=== PATIENT | male | born 1930 | race Caucasian/White ===

== ENCOUNTER 2016-10-01 17:54 | Emergency (ER) | payer MEDICARE, OTHER ==
[2016-10-01 18:22] VITALS: BP 147/85
[2016-10-01] MEDS ORDERED: NS 0.9% 1000 ML* 1,000 ML IV ONE (19:27)
--- NOTE | 2016-10-02 00:24 | UC ---
Libby Swain Erika, scribed for Rafaela Avelar MD on 10/01/16 at 1926 . General HPI - HPI Summary HPI Summary: Patient is an 86-year-old male presenting to [facility] with a CC of cough. Patient and patient's son reports that he was diagnosed with pneumonia a few weeks ago, and was seen at the ED and placed on a Z pack. Pt reports he improved for a while, but symptoms have returned with a cough and difficulty breathing. Pt has also intermittently had an aching feeling in his lower abdominal, which worsened while at [facility]. Hx diverticulosis with ruptured diverticulum. PSHx hip replacement surgery. Pt denies chest pain. He reports his last BM was today. - History of Current Complaint Chief Complaint: UCGeneralIllness Stated Complaint: COUGH Time Seen by Provider: 10/01/16 18:41 Hx Obtained From: Patient, Family/Boom Tender - Son Onset/Duration: Gradual Onset, Lasting Weeks, Worse Since - today Timing: Constant Onset Severity: Mild Current Severity: Moderate Pain Intensity: 5 Associated Signs & Symptoms: Positive: Abdominal Pain, Cough, SOB Related Hx: Recent Illness - pneumonia - Allergy/Home Medications Allergies/Adverse Reactions: Allergies Allergy/AdvReac Type Severity Reaction Status Date / Time Sulfa Antibiotics Allergy Intermediate Hives Verified 06/20/16 11:16 Sertraline [From Zoloft] Allergy Mild Diarrhea Verified 06/20/16 11:16 Tramadol Allergy Unknown Verified 06/20/16 11:16 Reaction Details betablocker Allergy Unknown Unknown Uncoded 07/01/15 09:10 Reaction Details PMH/Surg Hx/FS Hx/Imm Hx Endocrine History Of: Reports: Diabetes, Dyslipidemia Cardiovascular History Of: Reports: Cardiac Disorders - DE X 2 WITH STENT PLACEMENT, Hypertension, Pacemaker/ICD, Myocardial Infarction, Congestive Heart Failure Respiratory History Of: Reports: Bronchitis - IN THE PAST Psychological History Of: Reports: Depression Other History Of: Anticoagulant Therapy - pt takes plavix - Surgical History Surgical History: Yes Surgery Procedure, Year, and Place: cardiac stent,angioplasty, RIGHT HIP REPLACEMENT, COLON RESECTION, HERNIA;pacer/defib January 2013 - Family History Known Family History: Positive: Hypertension Family History: Denies FHx anesthesia reaction - Social History Alcohol Use: Weekly Alcohol Amount: 2-3 SHOTS A WEEK Substance Use Type: None Smoking Status (MU): Current Every Day Smoker Type: Cigars Amount Used/How Often: one/day Length of Time of Smoking/Using Tobacco: 30 yrs Have You Smoked in the Last Year: Yes - Immunization History Most Recent Influenza Vaccination: 2016 Review of Systems Respiratory: Shortness Of Breath, Cough Cardiovascular: Negative Gastrointestinal: Abdominal Pain All Other Systems Reviewed And Are Negative: Yes Physical Exam Triage Information Reviewed: Yes Appearance: Well-Nourished, Ill-Appearing - severely, Pain Distress Vital Signs: Initial Vital Signs Temp 97.9 F 10/01/16 18:11 Pulse 80 10/01/16 18:11 Resp 16 10/01/16 18:11 BP 147/85 10/01/16 18:11 Pulse Ox 100 10/01/16 18:11 Vital Signs Reviewed: Yes Eyes: Positive: Conjunctiva Clear ENT: Positive: Normal ENT inspection Neck: Positive: Supple Respiratory: Positive: Decreased breath sounds - bilaterally, Accessory muscle use, Other: - labored breathing at rest Cardiovascular: Positive: RRR, No Murmur, Pulses Normal, Brisk Capillary Refill , Other: - femoral pulses intact bilaterally Abdomen Description: Positive: Other: - diffuse low abd tenderness. Negative: Bruit, CVA Tenderness (R), CVA Tenderness (L), Distended, Guarding, Peritoneal Signs, Pulsatile Mass Bowel Sounds: Positive: Present Musculoskeletal: Positive: Strength Intact, ROM Intact Neurological: Positive: Alert, Muscle Tone Normal Psychological Exam: Normal Skin Exam: Normal Course/Dx - Differential Dx - Multi-Symptom Provider Diagnoses: 1. Dyspnea. 2. Abdominal pain - Physician Notifications Discussed Patient Care With: Dr. Sawant ([facility]) at 19:23 - accepts patient for transfer to the ED. [facility] at 19:25 - requested ambulance Discharge - Discharge Plan Condition: Stable [facility] Referrals: Trino Moreau MD [Primary Care Provider] - The documentation as recorded by the Libby garcia Erika accurately reflects the service I personally performed and the decisions made by , Rafaela Avelar MD.
== END 2016-10-01 19:50 | disposition short-term general hospital (02) ==
LOC: UCEAST 17:54
DX: R06.00 Dyspnea, unspecified (principal); R10.30 Lower abdominal pain, unspecified; Z88.6 Allergy status to analgesic agent; Z88.2 Allergy status to sulfonamides; Z88.8 Allergy status to other drugs, medicaments and biological substances; F17.210 Nicotine dependence, cigarettes, uncomplicated
CPT/HCPCS: 99213; G0463

== ENCOUNTER → 2016-10-01 20:09 | Emergency (ER) | payer MEDICARE, OTHER ==
[~2016-10-01 20:09] MED LIST: Dexamethasone IV* 4 MG/ML 1 ML (4 MG) IV SLOW PU ONE; HYDROmorphone INJ* 1 MG/ML CARPUJECT SYRINGE IV SLOW PU ONE; Iodixanol* (CONTRAST) 320 MG/ML 100 ML SDV IV ONE; Magnesium Oxide TAB* 400 MG PO ONE; NS 0.9% 1000 ML* 1,000 ML IV ONE; Ondansetron INJ* 2 MG/ML VIAL IV ONE; Orphenadrine Citrate IV* 30 MG/ML 2 ML VIAL IV ONE; fentaNYL* 50 MCG/ML 2 ML VIAL (100 MCG VIAL) IV ONE; oxyCODONE/Acetamin 5/325 MG* TAB PO ONE
[2016-10-01 20:37] LABS: Urine Bilirubin Negative (Negative); Urine Glucose Negative (Negative); Urine Nitrite Negative (Negative)
[2016-10-01 20:37] LABS: Hematocrit 39 % (42-52); Hemoglobin 12.7 g/dl (14.0-18.0); Mean Corpuscular HGB Conc 33 g/dl (31-36); Mean Corpuscular Hemoglobin 30 pg (27-31); Mean Corpuscular Volume 90 fL (80-94); Mean Platelet Volume 8 um3 (7.4-10.4); Red Cell Distribution Width 16 % (10.5-15); White Blood Count 8.4 10^3/ul (3.5-10.8)
[2016-10-01 20:38] LABS: Add Diff/Slide Review? Slide Review Added; Comments Flag Yes
[2016-10-01 20:52] LABS: ALT 10 U/L (7-52); AST 22 U/L (13-39); Albumin 3.4 g/dL (3.2-5.2); Alkaline Phosphatase 89 U/L (34-104); Amylase 18 U/L (29-103); Anion Gap 13 mmol/L (2-11); BUN/Creatinine Ratio 18.1 (8-20); Blood Urea Nitrogen 19 mg/dL (6-24); C Reactive Protein 8.97 mg/L (< 5.00); CO2 Carbon Dioxide 17 mmol/L (22-32); Calcium 9.1 mg/dL (8.6-10.3); Chloride 106 mmol/L (101-111); EGFR African American 86.5 (>60); EGFR Non-African American 67.3 (>60); Globulin 3.2 g/dL (2-4); Glucose 111 mg/dL (70-100); Lipase < 10 U/L (11.0-82.0); Magnesium 1.5 mg/dL (1.9-2.7); Potassium 3.8 mmol/L (3.5-5.0); Sodium 136 mmol/L (133-145); Total Protein 6.6 g/dL (6.4-8.9)
[2016-10-01 21:00] LABS: Troponin I 0.01 ng/mL (<0.04)
--- NOTE | 2016-10-01 21:40 | RAD ---
INDICATION: Abdominal pain. COMPARISON: CT angiogram April 04, 2010 TECHNIQUE: Axial source images were obtained from the hemidiaphragms to the symphysis pubis following administration of oral and intravenous contrast. 100 mL Visipaque 320 was utilized. Coronal and sagittal reconstructed images were acquired. Lung bases: The lung bases are clear. The heart is enlarged. There is cardiac pacemaker artifact. Liver: The liver is normal in size. There are no masses. There is no ductal dilatation. Gallbladder: There are no calcified gallstones. There is no evidence of wall thickening or pericholecystic fluid. Spleen: The spleen is normal in size. There are no masses. Pancreas: There is no focal pancreatic mass or ductal dilatation. There is pancreatic atrophy Adrenal glands: There is no evidence of adrenal mass. Kidneys: The kidneys are normal in size and position. There are prompt nephrograms and there is prompt excretion bilaterally. There are no renal parenchymal masses. There is no evidence of nephrolithiasis. Adenopathy: There is no evidence of adenopathy by size criteria. Fluid collections: There are no free or localized fluid collections. Vessels: There are extensive intimal calcifications of the aorta and iliac vessels. 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 There is a second saccular aneurysm measuring 1.6 cm in size originating immediately cephalad to the origin of the right common iliac artery. 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 There is a broad-based saccular component appearing unchanged. There is fusiform dilatation of left common iliac artery. The external iliac arteries are tortuous. The visceral branches of the aorta are patent although there is origin disease of the celiac axis. Single renal arteries appear widely patent. GI tract: Evaluation GI tract is somewhat limited largely related to significant breathing motion artifact. There are no obstructive findings or other acute process identified. Pelvic organs: The prostate and seminal vesicles appear normal Bladder: There are no bladder masses. Abdominal and pelvic soft tissues: There is a mesh related to prior ventral hernia repair. The appearance is unchanged. Osseous structures: There are no acute osseous findings. There is advanced, multilevel degenerative disc disease. There is right hip arthroplasty. There is multilevel canal stenosis. Other: None IMPRESSION: NO ACUTE CT FINDINGS. ADVANCED OSSEOUS CHRONIC CHANGES OF THE AORTA AND ILIAC VESSELS WITH AREAS OF ECTASIA, TORTUOSITY, AND ANEURYSMAL DILATATION APPEAR UNCHANGED RELATIVE TO THE 2010 STUDY.
--- NOTE | 2016-10-01 22:27 | RAD ---
INDICATION: Cough COMPARISON: Chest x-ray September 05, 2016 TECHNIQUE: PA and lateral dual-energy views were obtained. FINDINGS: Bones/Soft Tissues: There are no acute bony findings. There is a left-sided cardiac pacemaker Cardiomediastinal: The cardiomediastinal silhouette is mildly prominent. Lungs: There are no infiltrates. Pleura: There are no pleural effusions. Other: None IMPRESSION: CARDIAC PACEMAKER. NO ACTIVE DISEASE.
--- NOTE | 2016-10-01 22:56 | RAD ---
INDICATION: Left hip pain. Advanced osteoarthritic change left hip. COMPARISON: Left hip June 20, 2016 TECHNIQUE: 87 noncontrast axial source images of the left hemipelvis were obtained with coronal and sagittal reconstructions. FINDINGS: There is advanced osteoarthritic change about the left hip similar to earlier radiographs with obliteration of joint space superiorly with mild superior and lateral migration of the hip relative to its expected articulation. There is sclerosis of the acetabulum and the articulating surface of the femoral head. There are subchondral cyst formation about the femoral head. There is spurring about the inferior acetabulum. There are no acute bony findings. There is no joint effusion. IMPRESSION: ADVANCED OSTEOARTHRITIS LEFT HIP. NO ACUTE FINDINGS.
--- NOTE | 2016-10-01 23:23 | ED ---
Jarad Swain Billy, scribed for Trino Alegria MD on 10/01/16 at 2035 . Abdominal Pain/Male - HPI Summary HPI Summary: Patient is an 86 year-old male coming to [facility] from [facility] [place] complaining of constant lower abdominal pain starting several hours ago while he was at Urgent Care. He originally visited the Urgent Care earlier today for evaluation of his cough, at which point he developed his abdominal pain. Consequently, he was sent here to the ED for further evaluation. He reports pain severity 9/10 at this time. Nothing makes his pain better or worse. He does not report any other complaints. - History of Current Complaint Chief Complaint: EDAbdPain Stated Complaint: ABD PAIN Time Seen by Provider: 10/01/16 20:10 Hx Obtained From: Patient Onset/Duration: Gradual Onset, Lasting Hours, Still Present Timing: Constant Severity Initially: Moderate Severity Currently: Moderate Pain Intensity: 9 Pain Scale Used: 0-10 Numeric Location: Discrete At: RLQ, Discrete At: LLQ Radiates: No Aggravating Factor(s): Nothing Alleviating Factor(s): Nothing - Allergies/Home Medications Allergies/Adverse Reactions: Allergies Allergy/AdvReac Type Severity Reaction Status Date / Time Sulfa Antibiotics Allergy Intermediate Hives Verified 06/20/16 11:16 Sertraline [From Zoloft] Allergy Mild Diarrhea Verified 06/20/16 11:16 Tramadol Allergy Unknown Verified 06/20/16 11:16 Reaction Details betablocker Allergy Unknown Unknown Uncoded 07/01/15 09:10 Reaction Details PMH/Surg Hx/FS Hx/Imm Hx Endocrine/Hematology History: Reports: Hx Anticoagulant Therapy - pt takes plavix, Hx Diabetes Denies: Hx Thyroid Disease Cardiovascular History: Reports: Hx Angioplasty, Hx Atrial Fibrillation, Hx Congestive Heart Failure, Hx Coronary Artery Disease - stent placement, Hx Hypercholesterolemia, Hx Hypertension, Hx Myocardial Infarction, Hx Pacemaker/ ICD, 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, Other Cardiovascular Problems/Disorders - ONE STENT PLACED 1977 Respiratory History: Denies: Hx Asthma, Hx Chronic Obstructive Pulmonary Disease (COPD), Hx Lung Cancer GI History: Reports: Hx Gastroesophageal Reflux Disease Denies: Hx Gastrointestinal Bleed, Hx Ulcer History: Denies: Hx Renal Disease Musculoskeletal History: Reports: Hx Arthritis - LEFT HIP, Hx Rheumatoid Arthritis, Hx Back Problems, Other Musculoskeletal History - chronic low back pain Sensory History: Reports: Hx Cataracts - BILAT., Hx Contacts or Glasses, Hx Hearing Aid - right ear Opthamlomology History: Reports: Hx Cataracts - BILAT., Hx Contacts or Glasses Neurological History: Denies: Hx Dementia, Hx Migraine, Hx Seizures, Hx Transient Ischemic Attacks (TIA) Psychiatric History: Reports: Hx Depression Denies: Hx Panic Disorder - Surgical History Surgery Procedure, Year, and Place: cardiac stent,angioplasty, RIGHT HIP REPLACEMENT, COLON RESECTION, HERNIA;pacer/defib January 2013 Hx Anesthesia Reactions: No Infectious Disease History: No Infectious Disease History: Denies: Hx Clostridium Difficile, Hx Hepatitis, Hx Human Immunodeficiency Virus (HIV), Hx of Known/Suspected MRSA, Hx Shingles, Hx Tuberculosis, Traveled Outside the [place] in Last 30 Days - Family History Known Family History: Positive: Unknown - pt is a poor historian - Social History Alcohol Use: Weekly Alcohol Amount: 2-3 SHOTS A WEEK Hx Substance Use: No Substance Use Type: Reports: None Hx Tobacco Use: Yes Smoking Status (MU): Current Every Day Smoker Type: Cigars Amount Used/How Often: one/day Length of Time of Smoking/Using Tobacco: 30 yrs Have You Smoked in the Last Year: Yes Review of Systems Positive: Cough Positive: Abdominal Pain All Other Systems Reviewed And Are Negative: Yes Physical Exam - Summary Physical Exam Summary: VITAL SIGNS: Reviewed. GENERAL: Patient is a well developed and nourished elderly male who is lying comfortable in the stretcher. Patient is not in any acute respiratory distress. HEAD AND FACE: Normocephalic and atraumatic. EYES: PERRLA, EOMI x 2, No injected conjunctiva. EARS: Hearing grossly intact. Ear canals and tympanic membranes are WNL. MOUTH: Oropharynx within normal limits. NECK: Supple, trachea is midline, no adenopathy, no JVD. CHEST: Symmetric, no tenderness at palpation LUNGS: Clear to auscultation bilaterally. No wheezing or crackles. CVS: RRR,, S1 and S2 present, no murmurs or gallops appreciated. ABDOMEN: Soft, Positive lower abdominal tenderness. No signs of distention. Positive bowel sounds. No rebound no guarding, and no masses palpated. No abdominal bruit or pulsations. EXTREMITIES: DEcrease ROM in the left hip secondary to pain. NEURO: Alert and oriented x 3. No acute neurological deficits. Speech is normal. SKIN: Dry and warm Triage Information Reviewed: Yes Vital Signs On Initial Exam: Initial Vitals Temp Pulse Resp BP Pulse Ox 96.8 F 96 22 173/84 100 10/01/16 20:16 10/01/16 20:16 10/01/16 20:16 10/01/16 20:16 10/01/16 20:16 Vital Signs Reviewed: Yes Diagnostics - Vital Signs Vital Signs Temp Pulse Resp BP Pulse Ox 10/01/16 20:27 22 10/01/16 20:19 96.8 F 95 22 173/84 100 10/01/16 20:16 96.8 F 96 22 173/84 100 - Laboratory Lab Results: Lab Results 10/01/16 Range/Units 20:21 Blood Type Pending Antibody Screen Pending Result Diagrams: 10/01/16 20:21 10/01/16 20:21 Lab Statement: Any lab studies that have been ordered have been reviewed, and results considered in the medical decision making process. - Radiology CXR Radiology Interpretation Completed By: Radiologist - Cardiac pacemaker. No active disease. - CT abd/pel CT Interpretation Completed By: Radiologist - NO ACUTE CT FINDINGS. ADVANCED OSSEOUS CHRONIC CHANGES OF THE AORTA AND ILIAC VESSELS WITH AREAS OF ECTASIA, TORTUOSITY, AND ANEURYSMAL DILATATION APPEAR UNCHANGED RELATIVE TO THE [address] extremity [address] Interpretation Completed By: Radiologist - ADVANCED OSTEOARTHRITIS LEFT HIP. NO ACUTE FINDINGS. - EKG 2011 EKG Interpretation: ventricular paced rhythm 94 bpm EKG Comparison: No Significant Change - Compared to 09/11/15 Re-Evaluation - Re-Evaluation First Eval Re-Evaluation Time: 20:55 Change: Unchanged Second Eval Re-Evaluation Time: 22:18 Comment: Pain has moved to his left hip. Third Eval Re-Evaluation Time: 23:06 Change: Improved Abdominal Pain Fem Course/Dx - Course Assessment/Plan: Bloodwork WNL except for Hgb 12.7 and Hct 3.9. Glucose is 111. Mg of 1.5 for which he was given magnesium oxide. UA WNL. Initially when he came to the ER, he complained of abdominal pain 9/10 for which we started 2x IV access, he was given IV fluids, and fentanyl for the pain. Patient has a history of iliac aneurysms, however, the pulses in the femoral artery were strong and equal. However, because of the history, I decided to do CT with IV contrast immediately to rule out leaking aneurysms. The patient continued to have more pain, therefore he was given 0.5mg of dilaudid. The CT abd/pel impression from radiology shows no acute findings, advanced osseous chronic changes of the aorta and iliac vessels with areas of ectasia, aneurysmal dilatation appears unchanged from the study in 2009. When the patient returned from the CT, he complained more of pain in the left hip, therefore he was given another 0.5mg of dilaudid. I then ordered a CT of the left hip, which shows advanced osteoarthritis in the left hip with no acute findings. He was also given decadron and norflex and the symptoms have now improved. The patient continues to be hemodynamically stable, and since we are controlling the pain, the patient will be discharged home with follow up with PCP. - Diagnoses Provider Diagnoses: uncontrolled left hip pain Discharge - Discharge Plan Condition: Stable Disposition: HOME Prescriptions: Methocarbamol TAB* [Robaxin TAB*] 750 mg PO TID #12 tab methylPREDNISolone TAB* [Medrol TAB*] 4 mg PO DAILY #1 zeinab oxyCODONE/Acetamin 5/325 MG* [Percocet 5/325 TAB*] 1 tab PO Q6H PRN #6 tab MDD max 4 tab /day PRN Reason: Pain Patient Education Materials: Hip Pain (ED) Referrals: Trino Moreau MD [Primary Care Provider] - The documentation as recorded by the Jarad garcia Billy accurately reflects the service I personally performed and the decisions made by , Trino Alegria MD.
[2016-10-02 00:27] VITALS: BP 148/78
== END | disposition home or self-care (01) ==
LOC: ED 20:09
DX: M16.12 Unilateral primary osteoarthritis, left hip (principal); M25.552 Pain in left hip; R10.30 Lower abdominal pain, unspecified; F17.210 Nicotine dependence, cigarettes, uncomplicated; R50.9 Fever, unspecified; R06.00 Dyspnea, unspecified; Z88.6 Allergy status to analgesic agent; Z88.2 Allergy status to sulfonamides; Z88.8 Allergy status to other drugs, medicaments and biological substances
CPT/HCPCS: 36415; 71010; 74177; 80053; 81003; 82150; 83605; 83690; 83735; 84484; 85025; 86140; 86850; 86900; 86901; 93005; 96374; 96375; 96376; 99213; 99284; A9270-GY; G0463; J1100; J1170; J2360; J2405; J3010; Q9967

== ENCOUNTER 2017-02-02 14:30 | Emergency (ER) | payer MEDICARE, OTHER ==
--- NOTE | 2017-02-02 16:40 | RAD ---
Indication: Slurred speech. CT of the brain was performed without IV contrast. Ventricular structures are midline. No midline shift is noted. There is central and cortical atrophy noted. There is no evidence of intracranial mass or hemorrhage. No other high or low density lesions are identified. Mastoid air cells and paranasal sinuses are unremarkable. IMPRESSION: Atrophy. No intracranial mass or hemorrhage is noted.
--- NOTE | 2017-02-02 17:26 | RAD ---
Indication: Cough. 2 views of the chest including dual energy PA views demonstrates pacemaker leads in place. There is suggestion of some airspace disease in the left base with small left pleural effusion. Right lung field is clear. IMPRESSION: There may BE left lower lobe infiltrate with small left pleural effusion.
[2017-02-02 18:06] LABS: Urine Bilirubin Negative (Negative); Urine Glucose Negative (Negative); Urine Nitrite Negative (Negative)
[2017-02-02 18:23] LABS: Hematocrit 38 % (42-52); Hemoglobin 12.1 g/dl (14.0-18.0); Mean Corpuscular HGB Conc 32 g/dl (31-36); Mean Corpuscular Hemoglobin 29 pg (27-31); Mean Corpuscular Volume 88 fL (80-94); Mean Platelet Volume 7 um3 (7.4-10.4); Red Blood Count 4.25 10^6/ul (4.0-5.4); Red Cell Distribution Width 17 % (10.5-15); White Blood Count 9.1 10^3/ul (3.5-10.8)
[2017-02-02 18:35] LABS: Albumin 3.2 g/dL (3.2-5.2); BUN/Creatinine Ratio 18.5 (8-20); Calcium 8.9 mg/dL (8.6-10.3); EGFR African American 83.6 (>60); Globulin 3.7 g/dL (2-4); Magnesium 1.8 mg/dL (1.9-2.7); Potassium 4.3 mmol/L (3.5-5.0); Total Bilirubin 0.7 mg/dL (0.2-1.0); Total Protein 6.9 g/dL (6.4-8.9)
[2017-02-02 18:36] LABS: Troponin I 0.01 ng/mL (<0.04)
[2017-02-02 19:29] LABS: TSH (Thyroid Stimulating Horm) 0.9 mcIU/mL (0.34-5.60)
[2017-02-02] MEDS ORDERED: Levofloxacin TAB* 250 MG PO ONE ×2 (20:47)
[2017-02-02] MEDS ORDERED: Levofloxacin TAB* 750 MG ONE (20:48)
[2017-02-02] MEDS ORDERED: Levofloxacin TAB* 750 MG PO ONE (20:56)
[2017-02-02 21:04] VITALS: BP 140/77
--- NOTE | 2017-02-02 22:19 | ED ---
Darien Swain Alok, scribed for Kevin Arteaga MD on 02/02/17 at 1703 . Altered Mental Status - HPI Summary HPI Summary: 87M presents to the ED for AMS and fatigue for the last month. Pt's family states that since increasing his morphine dosage on 01/11/17 from 15 mg QD to 15 mg every 4 hours no more than 7 daily, the pt has been increasingly fatigued and sleepy as well as jerky. Pt also notes a productive cough with sometimes white and sometimes dark sputum for the last month. Pt c/o loss of appetite. Pt also notes dark urine and low magnesium levels his last two visits [place] [facility] Pt takes morphine for chronic back and hip pain. Pt notes slight abd pain. Pt states his BM have been normal. PMHx includes PNA last winter. Pt also is on fentanyl patch. Pt states the last time he stopped his morphine dosages he felt withdrawal symptoms. - History Of Current Complaint Chief Complaint: EDAltMentalStatus Stated Complaint: OVERDOSE Time Seen by Provider: 02/02/17 16:30 Hx Obtained From: Patient, Family/Disability Manager Onset/Duration: Still Present Severity Initially: Moderate Severity Currently: Moderate Aggravating Factor(s): Other - possible reaction to morphine dosage change Associated Signs And Symptoms: Positive: Weakness - fatiuge, sleepiness, jerkiness. Negative: Fever - Allergies/Home Medications Allergies/Adverse Reactions: Allergies Allergy/AdvReac Type Severity Reaction Status Date / Time Sulfa Antibiotics Allergy Intermediate Hives Verified 02/02/17 20:55 Sertraline [From Zoloft] Allergy Mild Diarrhea Verified 02/02/17 20:55 Tramadol Allergy Unknown Verified 02/02/17 20:55 Reaction Details betablocker Allergy Unknown Unknown Uncoded 02/02/17 20:55 Reaction Details PMH/Surg Hx/FS Hx/Imm Hx Endocrine/Hematology History: Reports: Hx Anticoagulant Therapy - pt takes plavix, Hx Diabetes Denies: Hx Thyroid Disease Cardiovascular History: Reports: Hx Angioplasty, Hx Atrial Fibrillation, Hx Congestive Heart Failure, Hx Coronary Artery Disease - stent placement, Hx Hypercholesterolemia, Hx Hypertension, Hx Myocardial Infarction, Hx Pacemaker/ ICD, 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, Other Cardiovascular Problems/Disorders - ONE STENT PLACED 1977 Respiratory History: Denies: Hx Asthma, Hx Chronic Obstructive Pulmonary Disease (COPD), Hx Lung Cancer GI History: Reports: Hx Gastroesophageal Reflux Disease Denies: Hx Gastrointestinal Bleed, Hx Ulcer History: Denies: Hx Renal Disease Musculoskeletal History: Reports: Hx Arthritis - LEFT HIP, Hx Rheumatoid Arthritis, Hx Back Problems, Other Musculoskeletal History - chronic low back pain Sensory History: Reports: Hx Cataracts - BILAT., Hx Contacts or Glasses, Hx Hearing Aid - right ear Opthamlomology History: Reports: Hx Cataracts - BILAT., Hx Contacts or Glasses Neurological History: Denies: Hx Dementia, Hx Migraine, Hx Seizures, Hx Transient Ischemic Attacks (TIA) Psychiatric History: Reports: Hx Depression Denies: Hx Panic Disorder - Surgical History Surgery Procedure, Year, and Place: cardiac stent,angioplasty, RIGHT HIP REPLACEMENT, COLON RESECTION, HERNIA;pacer/defib January 2013 Hx Anesthesia Reactions: No Infectious Disease History: Denies: Hx Clostridium Difficile, Hx Hepatitis, Hx Human Immunodeficiency Virus (HIV), Hx of Known/Suspected MRSA, Hx Shingles, Hx Tuberculosis, Traveled Outside the [place] in Last 30 Days - Family History Known Family History: Positive: Unknown - pt is a poor historian - Social History Occupation: Retired Alcohol Use: Occasionally Alcohol Amount: 2-3 SHOTS A WEEK Hx Substance Use: No Substance Use Type: Reports: None Hx Tobacco Use: Yes Smoking Status (MU): Current Every Day Smoker Type: Cigars Amount Used/How Often: one/day Length of Time of Smoking/Using Tobacco: 30 yrs Have You Smoked in the Last Year: Yes Review of Systems Positive: Fatigue, Other - sleepiness, jerkiness. Negative: Fever Positive: Cough Positive: Abdominal Pain - slight, Other - Loss of appetite. Negative: Constipation. Negative: Diarrhea Genitourinary: Other - dark urine Positive: Other - hip/back pain (chronic) All Other Systems Reviewed And Are Negative: Yes Physical Exam Triage Information Reviewed: Yes Vital Signs On Initial Exam: Initial Vitals Temp Pulse Resp BP Pulse Ox 98.1 F 70 18 129/55 93 02/02/17 14:33 02/02/17 14:33 02/02/17 14:33 02/02/17 14:33 02/02/17 14:33 Vital Signs Reviewed: Yes Appearance: Positive: Well-Appearing, No Pain Distress Skin: Positive: Warm, Skin Color Reflects Adequate Perfusion, Dry Head/Face: Positive: Normal Head/Face Inspection Eyes: Positive: Normal ENT: Positive: Normal ENT inspection Neck: Positive: Supple, Nontender Respiratory/Lung Sounds: Positive: Rhonchi - Bilaterally at both lung field bases Cardiovascular: Positive: RRR Abdomen Description: Positive: Nontender, Soft Bowel Sounds: Positive: Present Musculoskeletal: Positive: Normal Neurological: Positive: Normal Psychiatric: Positive: Normal, Affect/Mood Appropriate - Osmar Coma Scale Coma Scale Total: 15 Diagnostics - Vital Signs Vital Signs Temp Pulse Resp BP Pulse Ox 02/02/17 16:18 98.1 F 90 18 129/55 98 02/02/17 16:16 141/69 02/02/17 14:33 98.1 F 70 18 129/55 93 - Laboratory Lab Results: Lab Results 02/02/17 02/02/17 02/02/17 Range/Units 17:45 18:10 18:10 WBC 9.1 (3.5-10.8) 10^3/ul RBC 4.25 (4.0-5.4) 10^6/ul Hgb 12.1 L (14.0-18.0) g/dl Hct 38 L (42-52) % MCV 88 (80-94) fL MCH 29 (27-31) pg MCHC 32 (31-36) g/dl RDW 17 H (10.5-15) % Plt Count 300 (150-450) 10^3/ul MPV 7 L (7.4-10.4) um3 Neut % (Auto) 69.7 (38-83) % Lymph % (Auto) 18.7 L (25-47) % Cotton % (Auto) 9.8 H (1-9) % Eos % (Auto) 0.9 (0-6) % Baso % (Auto) 0.9 (0-2) % Absolute Neuts (auto) 6.3 (1.5-7.7) 10^3/ul Absolute Lymphs (auto) 1.7 (1.0-4.8) 10^3/ul Absolute Monos (auto) 0.9 H (0-0.8) 10^3/ul Absolute Eos (auto) 0.1 (0-0.6) 10^3/ul Absolute Basos (auto) 0.1 (0-0.2) 10^3/ul Absolute Nucleated RBC 0.01 10^3/ul Nucleated RBC % 0.1 Sodium 137 (133-145) mmol/L Potassium 4.3 (3.5-5.0) mmol/L Chloride 104 (101-111) mmol/L Carbon Dioxide 27 (22-32) mmol/L Anion Gap 6 (2-11) mmol/L BUN 20 (6-24) mg/dL Creatinine 1.08 (0.67-1.17) mg/dL Est GFR ( Amer) 83.6 (>60) Est GFR (Non-Af Amer) 65.0 (>60) BUN/Creatinine Ratio 18.5 (8-20) Glucose 107 H (70-100) mg/dL Lactic Acid (0.5-2.0) mmol/L Calcium 8.9 (8.6-10.3) mg/dL Magnesium 1.8 L (1.9-2.7) mg/dL Total Bilirubin 0.70 (0.2-1.0) mg/dL AST 17 (13-39) U/L ALT 12 (7-52) U/L Alkaline Phosphatase 85 (34-104) U/L Troponin I 0.01 (<0.04) ng/mL Total Protein 6.9 (6.4-8.9) g/dL Albumin 3.2 (3.2-5.2) g/dL Globulin 3.7 (2-4) g/dL Albumin/Globulin Ratio 0.9 L (1-3) TSH 0.90 (0.34-5.60) mcIU/mL Urine Color Yellow Urine Appearance Clear Urine pH 7.0 (5-9) Ur Specific [place] 1.016 (1.010-1.030) Urine Protein Negative (Negative) Urine Ketones Negative (Negative) Urine Blood Negative (Negative) Urine Nitrate Negative (Negative) Urine Bilirubin Negative (Negative) Urine Urobilinogen Negative (Negative) Ur Leukocyte Esterase Negative (Negative) Urine Glucose Negative (Negative) Urine Ascorbic Acid * H (Negative) 02/02/17 Range/Units 18:10 WBC (3.5-10.8) 10^3/ul RBC (4.0-5.4) 10^6/ul Hgb (14.0-18.0) g/dl Hct (42-52) % MCV (80-94) fL MCH (27-31) pg MCHC (31-36) g/dl RDW (10.5-15) % Plt Count (150-450) 10^3/ul MPV (7.4-10.4) um3 Neut % (Auto) (38-83) % Lymph % (Auto) (25-47) % Cotton % (Auto) (1-9) % Eos % (Auto) (0-6) % Baso % (Auto) (0-2) % Absolute Neuts (auto) (1.5-7.7) 10^3/ul Absolute Lymphs (auto) (1.0-4.8) 10^3/ul Absolute Monos (auto) (0-0.8) 10^3/ul Absolute Eos (auto) (0-0.6) 10^3/ul Absolute Basos (auto) (0-0.2) 10^3/ul Absolute Nucleated RBC 10^3/ul Nucleated RBC % Sodium (133-145) mmol/L Potassium (3.5-5.0) mmol/L Chloride (101-111) mmol/L Carbon Dioxide (22-32) mmol/L Anion Gap (2-11) mmol/L BUN (6-24) mg/dL Creatinine (0.67-1.17) mg/dL Est GFR ( Amer) (>60) Est GFR (Non-Af Amer) (>60) BUN/Creatinine Ratio (8-20) Glucose (70-100) mg/dL Lactic Acid 1.0 (0.5-2.0) mmol/L Calcium (8.6-10.3) mg/dL Magnesium (1.9-2.7) mg/dL Total Bilirubin (0.2-1.0) mg/dL AST (13-39) U/L ALT (7-52) U/L Alkaline Phosphatase (34-104) U/L Troponin I (<0.04) ng/mL Total Protein (6.4-8.9) g/dL Albumin (3.2-5.2) g/dL Globulin (2-4) g/dL Albumin/Globulin Ratio (1-3) TSH (0.34-5.60) mcIU/mL Urine Color Urine Appearance Urine pH (5-9) Ur Specific [place] (1.010-1.030) Urine Protein (Negative) Urine Ketones (Negative) Urine Blood (Negative) Urine Nitrate (Negative) Urine Bilirubin (Negative) Urine Urobilinogen (Negative) Ur Leukocyte Esterase (Negative) Urine Glucose (Negative) Urine Ascorbic Acid (Negative) Result Diagrams: 02/02/17 18:10 02/02/17 18:10 Lab Statement: Any lab studies that have been ordered have been reviewed, and results considered in the medical decision making process. - Radiology CXR Xray Interpretation: Positive (See Comments) - IMPRESSION: There may BE left lower lobe infiltrate with small left pleural effusion. Radiology Interpretation Completed By: Radiologist - CT Brain CT CT Interpretation: Positive (See Comments) - IMPRESSION: Atrophy. No intracranial mass or hemorrhage is noted. CT Interpretation Completed By: Radiologist Altered Mental Statu Course/Dx - Course Course Of Treatment: Mr. Best has been sleeping a lot for several weeks and also coughing. He had his PO morphine increased from 15 mgs a day to 15 mgs q 4 hrs prn and I think he has been getting most of it. His CXR showed a possible early pneumonia and I will treat him for that and I recommended that he get no more than 3 doses of the morphine for a few days to see if that manages his pain. - Diagnoses Discharge Diagnoses: Pneumonia, Medication adverse effect Discharge - Discharge Plan Condition: Stable Disposition: HOME Prescriptions: Levofloxacin TAB* [Levaquin TAB*] 750 mg PO DAILY #10 tab Patient Education Materials: Pneumonia (ED) Referrals: Trino Moreau MD [Primary Care Provider] - Additional Instructions: Cut your morphine dosage down to 15 mg 3 times a day. Please follow up with your primary care provider. The documentation as recorded by the Darien garcia Alok accurately reflects the service I personally performed and the decisions made by me, Kevin Arteaga MD.
== END 2017-02-02 21:05 | disposition home or self-care (01) ==
LOC: ED 14:30
DX: J18.9 Pneumonia, unspecified organism (principal); T40.2X1A Poisoning by other opioids, accidental (unintentional), initial encounter; R53.1 Weakness; R53.83 Other fatigue; F17.210 Nicotine dependence, cigarettes, uncomplicated; R05 Cough; R10.9 Unspecified abdominal pain; Y92.9 Unspecified place or not applicable
CPT/HCPCS: 36415; 70450; 71020; 80053; 81003; 83605; 83735; 84443; 84484; 85025; 99283; A9270-GY

== ENCOUNTER 2017-02-11 21:10 | Emergency (ER) | payer MEDICARE, OTHER ==
--- NOTE | 2017-02-11 21:47 | ED ---
Tyler Swain SooYoung, scribed for Iglesia Devine MD on 02/11/17 at 2139 . Complex/Multi-Sys Presentation - HPI Summary HPI Summary: An 87 y/o M ZACH presents to ED with ongoing, increasing weakness for past few weeks. Per EMS, the family called to have pt brought to ED due to his weakness and difficulty ambulating with his walker. Pt has had four falls in the past week. He lives with his , and his son visits them daily. Pt's baseline includes bilat diffuse pain. He has not been sleeping well. Pt was last seen in ED nine days ago for overdose. He denies seeing his PCP since his last ED visit. - History Of Current Complaint Chief Complaint: EDWeakness Time Seen by Provider: 02/11/17 21:15 Hx Obtained From: Patient, EMS Onset/Duration: Lasting Weeks, Still Present Timing: Constant Associated Signs And Symptoms: Positive: Weakness, Other - pos: difficulty ambulating - Allergies/Home Medications Allergies/Adverse Reactions: Allergies Allergy/AdvReac Type Severity Reaction Status Date / Time Sulfa Antibiotics Allergy Intermediate Hives Verified 02/02/17 20:55 Sertraline [From Zoloft] Allergy Mild Diarrhea Verified 02/02/17 20:55 Tramadol Allergy Unknown Verified 02/02/17 20:55 Reaction Details betablocker Allergy Unknown Unknown Uncoded 02/02/17 20:55 Reaction Details PMH/Surg Hx/FS Hx/Imm Hx Previously Healthy: No Endocrine/Hematology History: Reports: Hx Anticoagulant Therapy - pt takes plavix, Hx Diabetes Denies: Hx Thyroid Disease Cardiovascular History: Reports: Hx Angioplasty, Hx Atrial Fibrillation, Hx Congestive Heart Failure, Hx Coronary Artery Disease - stent placement, Hx Hypercholesterolemia, Hx Hypertension, Hx Myocardial Infarction, Hx Pacemaker/ ICD, 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, Other Cardiovascular Problems/Disorders - ONE STENT PLACED 1977 Respiratory History: Denies: Hx Asthma, Hx Chronic Obstructive Pulmonary Disease (COPD), Hx Lung Cancer GI History: Reports: Hx Gastroesophageal Reflux Disease Denies: Hx Gastrointestinal Bleed, Hx Ulcer History: Denies: Hx Renal Disease Musculoskeletal History: Reports: Hx Arthritis - LEFT HIP, Hx Rheumatoid Arthritis, Hx Back Problems, Other Musculoskeletal History - chronic low back pain Sensory History: Reports: Hx Cataracts - BILAT., Hx Contacts or Glasses, Hx Hearing Aid - right ear Opthamlomology History: Reports: Hx Cataracts - BILAT., Hx Contacts or Glasses Neurological History: Denies: Hx Dementia, Hx Migraine, Hx Seizures, Hx Transient Ischemic Attacks (TIA) Psychiatric History: Reports: Hx Depression Denies: Hx Panic Disorder - Surgical History Surgery Procedure, Year, and Place: cardiac stent,angioplasty, RIGHT HIP REPLACEMENT, COLON RESECTION, HERNIA;pacer/defib January 2013 Hx Anesthesia Reactions: No Infectious Disease History: No Infectious Disease History: Denies: Hx Clostridium Difficile, Hx Hepatitis, Hx Human Immunodeficiency Virus (HIV), Hx of Known/Suspected MRSA, Hx Shingles, Hx Tuberculosis, Traveled Outside the [place] in Last 30 Days - Family History Known Family History: Positive: Unknown - pt is a poor historian - Social History Occupation: Retired Lives: With Family Alcohol Use: Occasionally Alcohol Amount: 2-3 SHOTS A WEEK Hx Substance Use: No Substance Use Type: Reports: None Hx Tobacco Use: Yes Smoking Status (MU): Current Every Day Smoker Type: Cigars Amount Used/How Often: one/day Length of Time of Smoking/Using Tobacco: 30 yrs Have You Smoked in the Last Year: Yes Review of Systems Positive: Other - pos: generalized pain Neurological: Other - pos: difficulty ambulating Positive: Weakness All Other Systems Reviewed And Are Negative: Yes Physical Exam Triage Information Reviewed: Yes Vital Signs On Initial Exam: Initial Vitals Temp Pulse Resp BP Pulse Ox 97.4 F 86 19 157/78 99 02/11/17 21:15 02/11/17 21:15 02/11/17 21:15 02/11/17 21:15 02/11/17 21:15 Vital Signs Reviewed: Yes Appearance: Positive: Pain Distress - mild discomfort, Thin Skin: Positive: Warm Head/Face: Positive: Normal Head/Face Inspection Eyes: Positive: NOHEMY ENT: Positive: Hearing grossly normal Neck: Positive: Supple Respiratory/Lung Sounds: Positive: Breath Sounds Present Cardiovascular: Positive: RRR Abdomen Description: Positive: Nontender, Soft Bowel Sounds: Positive: Present Musculoskeletal: Positive: Strength/ROM Intact Neurological: Positive: Alert, Oriented to Person Place, Time Diagnostics - Vital Signs Vital Signs Temp Pulse Resp BP Pulse Ox 02/11/17 21:15 97.4 F 86 19 157/78 99 - Laboratory Result Diagrams: 02/11/17 21:55 02/11/17 21:55 Lab Statement: Any lab studies that have been ordered have been reviewed, and results considered in the medical decision making process. - Radiology CXR Xray Interpretation: Positive (See Comments) - IMPRESSION: COPD. IMPROVED AERATION OF LEFT LUNG BASE WITH MINIMAL PERSISTENT LEFT BASILAR ATELECTASIS VERSUS CONSOLIDATION Radiology Interpretation Completed By: Radiologist - CT BRAIN CT CT Interpretation: No Acute Changes - IMPRESSION: NO ACUTE INTRACRANIAL PATHOLOGY. DIFFUSE INVOLUTIONAL CHANGE WITH CHRONIC SMALL VESSEL ISCHEMIC CHANGES. CT Interpretation Completed By: Radiologist - EKG 1 EKG Interpretation: Paced rhythm with occassional PVCs Re-Evaluation - Re-Evaluation First Eval Comment: pt seen and evaluated by hospitalist, pt will go home with family Complex Multi-Symp Course/Dx Course Of Treatment: Pt is an 87 y/o M BIBA presenting with increasing weakness for past few weeks. Pt has had 4 falls this week. He lives with his , and his son visits them daily. Pt's baseline includes bilat diffuse pain. He has not been sleeping well. Pt was last seen in ED nine days ago for overdose. Trop is 0.01. UA is nml. EKG shows paced rhythm with occasional PVCs. CXR shows "COPD. IMPROVED AERATION OF LEFT LUNG BASE WITH MINIMAL PERSISTENT LEFT BASILAR ATELECTASIS VERSUS CONSOLIDATION." BRAIN CT shows "NO ACUTE INTRACRANIAL PATHOLOGY. DIFFUSE INVOLUTIONAL CHANGE WITH CHRONIC SMALL VESSEL ISCHEMIC CHANGES.". Hospitalist consulted with the family, who prefer to take pt home. Will D/C home. - Diagnoses Provider Diagnoses: Weakness generalized - Physician Notifications Discussed Care Of Patient With: Dr. Luo, hospitalist Time Discussed With Above Provider: 22:27 Instructed by Provider To: Will See In ED Discharge - Discharge Plan Condition: Stable Disposition: HOME Patient Education Materials: Weakness (ED) Referrals: Trino Moreau MD [Primary Care Provider] - Additional Instructions: Please return to the ED if you experience new or worsening symptoms. The documentation as recorded by the Tyler garcia SooYoung accurately reflects the service I personally performed and the decisions made by me, Iglesia Devine MD.
[2017-02-11 22:08] LABS: Hematocrit 40 % (42-52); Hemoglobin 12.9 g/dl (14.0-18.0); Mean Corpuscular HGB Conc 33 g/dl (31-36); Mean Corpuscular Hemoglobin 29 pg (27-31); Mean Corpuscular Volume 87 fL (80-94); Mean Platelet Volume 7 um3 (7.4-10.4); Red Blood Count 4.54 10^6/ul (4.0-5.4); Red Cell Distribution Width 17 % (10.5-15); White Blood Count 8.7 10^3/ul (3.5-10.8)
[2017-02-11 22:21] LABS: Albumin 3.2 g/dL (3.2-5.2); Calcium 9.3 mg/dL (8.6-10.3); EGFR African American 81.8 (>60); EGFR Non-African American 63.6 (>60); Globulin 3.8 g/dL (2-4); Magnesium 1.6 mg/dL (1.9-2.7); Potassium 3.9 mmol/L (3.5-5.0); Total Bilirubin 0.6 mg/dL (0.2-1.0)
[2017-02-11 22:23] LABS: Troponin I 0.01 ng/mL (<0.04)
--- NOTE | 2017-02-11 22:34 | RAD ---
HISTORY: Weakness COMPARISONS: February 02, 2017 VIEWS: 2: Frontal and lateral views of the chest. FINDINGS: CARDIOMEDIASTINAL SILHOUETTE: The cardiomediastinal silhouette is normal. MALOGRZATA: The malgorzata are normal. PLEURA: The costophrenic angles are sharp. No pleural abnormalities are noted. LUNG PARENCHYMA: There is hyperinflation with flattening of the diaphragm and expansion of the AP diameter of the chest. There is persistent but improved patchy alveolar opacification of left lung base. ABDOMEN: The upper abdomen is clear. There is no subphrenic gas. BONES AND SOFT TISSUES: No bone or soft tissue abnormalities are noted. OTHER: A left-sided pacemaker is noted IMPRESSION: COPD. IMPROVED AERATION OF LEFT LUNG BASE WITH MINIMAL PERSISTENT LEFT BASILAR ATELECTASIS VERSUS CONSOLIDATION
--- NOTE | 2017-02-11 22:36 | RAD ---
HISTORY: Fall, on Plavix, weakness COMPARISONS: February 02, 2017 TECHNIQUE: Multiple contiguous axial CT scans were obtained of the head without intravenous contrast. FINDINGS: HEMORRHAGE/INFARCT: There is no hemorrhage or acute infarct. MASSES/SHIFT: There is no mass or shift. EXTRA-AXIAL SPACES: There are no extra-axial fluid collections. SULCI AND VENTRICLES: There is diffuse and proportional enlargement of the sulci and ventricles. CEREBRUM: There is hypoattenuation of the periventricular and subcortical white matter. There is beam hardening artifact along the left frontal lobe BRAINSTEM: There are no focal parenchymal abnormalities. CEREBELLUM: There are no focal parenchymal abnormalities. VESSELS: The vessels are grossly normal. PARANASAL SINUSES: The paranasal sinuses are clear. ORBITS: The orbits are unremarkable. BONES AND SOFT TISSUE: No bone or soft tissue abnormalities are noted. OTHER: None IMPRESSION: NO ACUTE INTRACRANIAL PATHOLOGY. DIFFUSE INVOLUTIONAL CHANGE WITH CHRONIC SMALL VESSEL ISCHEMIC CHANGES.
[2017-02-11 23:02] LABS: Urine Bilirubin Negative (Negative); Urine Glucose Negative (Negative); Urine Nitrite Negative (Negative)
[2017-02-12 00:38] VITALS: BP 154/92
--- NOTE | 2017-02-12 00:49 | HP ---
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 He has been having his medications adjusted recently for inadequate control, but became too somnolent and so his self-down titrated his morphine. He continues to use a fentanyl patch. He is alert and engaging, but hard of hearing. He reports increased falls at home despite using a new walker. He was seen in [facility] ED on 02/02 for the same and discharged. His work up continues to be unrevealing. Vitals are stable. Labs are stable for him. CT brain WO is negative as it was on the . His back and leg pain have been present for >1 year and per his report is no worse. PMedHx multiple vertebral FXs CAD/VA HTN HLD chronic LBP w/ LLE sciatica diverticulosis w/ diverticulitis moderate hearing loss Ambulatory Orders Atorvastatin* [Lipitor*] 20 mg PO BEDTIME 06/22/12 Clopidogrel TAB* [Plavix TAB*] 75 mg PO DAILY 06/22/12 FLUoxetine CAP* [Prozac CAP*] 20 mg PO DAILY 06/22/12 Multiple Vitamin [Multivitamins] 1 cap PO DAILY 06/22/12 Nitroglycerin TAB 0.4 MG* [Nitrostat*] 0.4 mg SL Q5M PRN 06/22/12 Pantoprazole Sodium [Protonix] 40 mg PO DAILY 06/22/12 Ramipril CAP* [Altace CAP*] 5 mg PO DAILY 06/22/12 amLODIPine TAB* [Norvasc TAB*] 2.5 mg PO DAILY 06/22/12 Lidocaine PATCH 5%* [Lidoderm 5% Patch*] 1 patch TRANSDERM DAILY 02/07/14 Spironolactone TAB* [Aldactone TAB*] 12.5 mg PO DAILY 02/07/14 Rivaroxaban TAB(*) [Xarelto 10 mg (*)] 10 mg PO DAILY 04/18/16 fentaNYL PATCH 25 MCG/HR* [Duragesic PATCH 25 Mcg/Hr*] 25 mcg TRANSDERM Q72H 10/03 Azithromycin TAB* [Zithromax TAB (Z-FAMILIA) 250 mg #6 tabs] 250 mg PO DAILY #4 tab 09/05/16 Methocarbamol TAB* [Robaxin TAB*] 750 mg PO TID #12 tab 10/01/16 methylPREDNISolone TAB* [Medrol TAB*] 4 mg PO DAILY #1 familia 10/01/16 Morphine TAB (NF) 15 mg PO Q4H PRN MDD 6 12/14/16 Levofloxacin TAB* [Levaquin TAB*] 750 mg PO DAILY #10 tab 02/02/17 Allergies Sulfa Antibiotics Allergy (Intermediate, Verified 02/02/17 20:55) Hives swelling/ eyes hurt Sertraline [From Zoloft] Allergy (Mild, Verified 02/02/17 20:55) Diarrhea Tramadol Allergy (Verified 02/02/17 20:55) Unknown Reaction Details betablocker Allergy (Unknown, Uncoded 02/02/17 20:55) Unknown Reaction Details SocHx: lives with his ; full code status FamHx: positive for CAD, HTN, HLD ROS: as above, otherwise reviewed and all were negative Constitutional: NAD, normally developed, well-nourished elderly white male vitals: Vital Signs Temp 36.3 C 02/11/17 21:15 Pulse 86 02/11/17 21:15 Resp 19 02/11/17 21:15 BP 157/78 02/11/17 21:15 Pulse Ox 99 02/11/17 21:15 Intake & Output 02/11/17 02/11/17 02/12/17 11:59 23:59 11:59 Weight 83.007 kg HEENM: atraumatic; sclera/conjunctiva: non-icteric/clear; hearing: moderately decreased; oropharynx: clear, mucosa moist Neck: soft tissue: non-tender; thyroid: normal Pulmonary: clear to auscultation bilaterally, good aeration, no accessory muscle use CV: RR/RR, normal S1S2, no carotid bruit, no jugular venous distention, 2+ B DP/ PT, no edema Abdominal: soft, non-distended, non-tender, no rebound/guarding/rigidity, normoactive bowel sounds, no hepatosplenomegaly or masses, no costovertebral angle tenderness Musculoskeletal: general: grossly intact, no overt deformities or palpable tenderness x4 Integumental: normal appearance and texture of exposed skin Psychiatric orientation: AA&O to PPS affect: calm mood: cooperative eye contact: good content: reliable responses: timely insight: fair Testing: Lab Results 02/11/17 02/11/17 02/11/17 Range/Units 21:55 21:55 21:55 WBC 8.7 (3.5-10.8) 10^3/ul RBC 4.54 (4.0-5.4) 10^6/ul Hgb 12.9 L (14.0-18.0) g/dl Hct 40 L (42-52) % MCV 87 (80-94) fL MCH 29 (27-31) pg MCHC 33 (31-36) g/dl RDW 17 H (10.5-15) % Plt Count 289 (150-450) 10^3/ul MPV 7 L (7.4-10.4) um3 Neut % (Auto) 65.3 (38-83) % Lymph % (Auto) 21.5 L (25-47) % [place] % (Auto) 11.4 H (1-9) % Eos % (Auto) 0.9 (0-6) % Baso % (Auto) 0.9 (0-2) % Absolute Neuts (auto) 5.7 (1.5-7.7) 10^3/ul Absolute Lymphs (auto) 1.9 (1.0-4.8) 10^3/ul Absolute Monos (auto) 1.0 H (0-0.8) 10^3/ul Absolute Eos (auto) 0.1 (0-0.6) 10^3/ul Absolute Basos (auto) 0.1 (0-0.2) 10^3/ul Absolute Nucleated RBC 0 10^3/ul Nucleated RBC % 0 Sodium 136 (133-145) mmol/L Potassium 3.9 (3.5-5.0) mmol/L Chloride 104 (101-111) mmol/L Carbon Dioxide 24 (22-32) mmol/L Anion Gap 8 (2-11) mmol/L BUN 22 (6-24) mg/dL Creatinine 1.10 (0.67-1.17) mg/dL Est GFR ( Amer) 81.8 (>60) Est GFR (Non-Af Amer) 63.6 (>60) BUN/Creatinine Ratio 20.0 (8-20) Glucose 99 (70-100) mg/dL Lactic Acid 1.4 (0.5-2.0) mmol/L Calcium 9.3 (8.6-10.3) mg/dL Magnesium 1.6 L (1.9-2.7) mg/dL Total Bilirubin 0.60 (0.2-1.0) mg/dL AST 22 (13-39) U/L ALT 10 (7-52) U/L Alkaline Phosphatase 68 (34-104) U/L Troponin I 0.01 (<0.04) ng/mL Total Protein 7.0 (6.4-8.9) g/dL Albumin 3.2 (3.2-5.2) g/dL Globulin 3.8 (2-4) g/dL Albumin/Globulin Ratio 0.8 L (1-3) Urine Color Urine Appearance Urine pH (5-9) Ur Specific Bailey (1.010-1.030) Urine Protein (Negative) Urine Ketones (Negative) Urine Blood (Negative) Urine Nitrate (Negative) Urine Bilirubin (Negative) Urine Urobilinogen (Negative) Ur Leukocyte Esterase (Negative) Urine Glucose (Negative) Urine Ascorbic Acid (Negative) 02/11/17 Range/Units 22:50 WBC (3.5-10.8) 10^3/ul RBC (4.0-5.4) 10^6/ul Hgb (14.0-18.0) g/dl Hct (42-52) % MCV (80-94) fL MCH (27-31) pg MCHC (31-36) g/dl RDW (10.5-15) % Plt Count (150-450) 10^3/ul MPV (7.4-10.4) um3 Neut % (Auto) (38-83) % Lymph % (Auto) (25-47) % [place] % (Auto) (1-9) % Eos % (Auto) (0-6) % Baso % (Auto) (0-2) % Absolute Neuts (auto) (1.5-7.7) 10^3/ul Absolute Lymphs (auto) (1.0-4.8) 10^3/ul Absolute Monos (auto) (0-0.8) 10^3/ul Absolute Eos (auto) (0-0.6) 10^3/ul Absolute Basos (auto) (0-0.2) 10^3/ul Absolute Nucleated RBC 10^3/ul Nucleated RBC % Sodium (133-145) mmol/L Potassium (3.5-5.0) mmol/L Chloride (101-111) mmol/L Carbon Dioxide (22-32) mmol/L Anion Gap (2-11) mmol/L BUN (6-24) mg/dL Creatinine (0.67-1.17) mg/dL Est GFR ( Amer) (>60) Est GFR (Non-Af Amer) (>60) BUN/Creatinine Ratio (8-20) Glucose (70-100) mg/dL Lactic Acid (0.5-2.0) mmol/L Calcium (8.6-10.3) mg/dL Magnesium (1.9-2.7) mg/dL Total Bilirubin (0.2-1.0) mg/dL AST (13-39) U/L ALT (7-52) U/L Alkaline Phosphatase (34-104) U/L Troponin I (<0.04) ng/mL Total Protein (6.4-8.9) g/dL Albumin (3.2-5.2) g/dL Globulin (2-4) g/dL Albumin/Globulin Ratio (1-3) Urine Color Yellow Urine Appearance Clear Urine pH 7.0 (5-9) Ur Specific Bailey 1.016 (1.010-1.030) Urine Protein Negative (Negative) Urine Ketones Negative (Negative) Urine Blood Negative (Negative) Urine Nitrate Negative (Negative) Urine Bilirubin Negative (Negative) Urine Urobilinogen Negative (Negative) Ur Leukocyte Esterase Negative (Negative) Urine Glucose Negative (Negative) Urine Ascorbic Acid * H (Negative) ECG, personally reviewed: AFIB rate 87, ventricularly paced, PVCs CXR, personally reviewed: IMPRESSION: COPD. IMPROVED AERATION OF LEFT LUNG BASE WITH MINIMAL PERSISTENT LEFT BASILAR ATELECTASIS VERSUS CONSOLIDATION CT brain WO, personally reviewed: IMPRESSION: NO ACUTE INTRACRANIAL PATHOLOGY. DIFFUSE INVOLUTIONAL CHANGE WITH CHRONIC SMALL VESSEL ISCHEMIC CHANGES. Impression: 87M reporting long-standing LBP w/ LLE sciatica presenting due to more recent increase in falls, generalized deconditioning, & poor PO intake/ appetite with negative acute work up today and previously on 02/02/2017 DIAGNOSIS & PLAN Primary stable chronic LBP & LLE sciatica : continue outpatient follow up with pain medicine poor PO intake/appetite : likely 2nd narcotics, discuss with pain medicine : consider addition of megestrol or dronabinol gait instability : again, likely 2nd narcotics : dronabinol may improve pain control as with less gait distubance as well as improve appetite Discussion: Advised patient and family that in the absence of acute findings, insurance is not likely to cover an admission possibly resulting in their being financially responsible. Option of penitentiary admission discussed. However, physical therapy would not begin until Monday due to the holiday weekend & no other medical issues are present to address. His has already stopped his PRN PO morphine and he is not currently overmedicated. Their questions were sought and answered to their satisfaction and they declined penitentiary admission planning instead to follow up outpatient with PCP & pain medicine as above. They are advised to bring him back to the ED for any changes or worsening as subsequent evaluation may yield a new finding. They acknowledge having enough family resources to have someone available to help him. Additionally, they were encouraged to try OTC Ensure or Boost supplements for nutrition and caloric intake.
== END 2017-02-12 00:40 | disposition home or self-care (01) ==
LOC: ED 21:10
DX: R53.1 Weakness (principal); F17.210 Nicotine dependence, cigarettes, uncomplicated
CPT/HCPCS: 36415; 70450; 71020; 80053; 81003; 83605; 83735; 84484; 85025; 93005; 99282

== ENCOUNTER 2017-08-19 13:09 | Emergency (ER) | payer MEDICARE, OTHER ==
--- NOTE | 2017-08-19 15:06 | UC ---
Respiratory Complaint HPI - HPI Summary HPI Summary: 87 yo WM c/o cough with bloody sputum, quarter sized, mixed with green and yellow sputum x 2 weeks. Cough is worse at night, less in the daytime. Pt has a h/o PNA in the past 3 years around the same time which started with similar sx, denies SOB f/c/n/v/d. - History of Current Complaint Chief Complaint: UCRespiratory Stated Complaint: SPITTING UP BLOOD, COUGH Time Seen by Provider: 08/19/17 14:51 Hx Obtained From: Patient, Family/Energy Efficiency Engineer Onset/Duration: Gradual Onset Timing: Intermittent Episodes Severity Currently: Mild Character: Sputum Description: - mixed with blood, quarter size Aggravating Factors: Nothing Alleviating Factors: Nothing Related History: Similar Episode/Dx as: - PNAx3 past 3 years, started with similar sx - Allergies/Home Medications Allergies/Adverse Reactions: Allergies Allergy/AdvReac Type Severity Reaction Status Date / Time Sulfa Antibiotics Allergy Intermediate Hives Verified 08/19/17 13:22 Sertraline [From Zoloft] Allergy Mild Diarrhea Verified 08/19/17 13:22 Tramadol Allergy Unknown Verified 08/19/17 13:22 Reaction Details betablocker Allergy Unknown Unknown Uncoded 08/19/17 13:22 Reaction Details Home Medications: Home Medications Ramipril CAP* [Altace CAP*] 1 tab PO DAILY 08/19/17 [History Confirmed 08/19/17] PMH/Surg Hx/FS Hx/Imm Hx Other Respiratory History: PNA Other History Of: Anticoagulant Therapy - pt takes plavix - Surgical History Surgical History: Yes Surgery Procedure, Year, and Place: cardiac stent,angioplasty, RIGHT HIP REPLACEMENT, COLON RESECTION, HERNIA;pacer/defib January 2013 - Family History Known Family History: Positive: Unknown - pt is a poor historian - Social History Alcohol Use: None Alcohol Amount: 2-3 SHOTS A WEEK Substance Use Type: None Smoking Status (MU): Current Some Day Smoker Type: Cigars Amount Used/How Often: One per day Length of Time of Smoking/Using Tobacco: 30 yrs Have You Smoked in the Last Year: Yes Household Exposure Type: Cigarettes - Immunization History Most Recent Influenza Vaccination: 2017 Most Recent Pneumonia Vaccination: UTD Review of Systems Constitutional: Negative Skin: Negative Eyes: Negative ENT: Negative Respiratory: Cough - bloody cough Cardiovascular: Negative Gastrointestinal: Negative Genitourinary: Negative Motor: Negative Neurovascular: Negative Musculoskeletal: Negative Neurological: Negative Psychological: Negative All Other Systems Reviewed And Are Negative: Yes Physical Exam Triage Information Reviewed: Yes Vital Signs: Initial Vital Signs Temp 36.2 C 08/19/17 13:16 Pulse 70 08/19/17 13:16 Resp 16 08/19/17 13:16 BP 122/68 08/19/17 13:16 Pulse Ox 96 08/19/17 13:16 Eye Exam: Normal ENT Exam: Normal Dental Exam: Normal Neck exam: Normal Neck: Positive: 1 Respiratory Exam: Normal Respiratory: Positive: Decreased breath sounds, Crackles, Other:. Negative: Rhonchi, Stridor, Wheezing Cardiovascular Exam: Normal Abdominal Exam: Normal Musculoskeletal Exam: Normal Neurological Exam: Normal Psychological Exam: Normal Skin Exam: Normal UC Diagnostic Evaluation - Laboratory O2 Sat by Pulse Oximetry: 96 - Radiology Xray Interpretation: Positive (See Comments) - B/B haziness c/w B/L PNA Respiratory Course/Dx - Course Course Of Treatment: CXr with B/L haziness at the bases. Given productive cough with sputum, will tx for PNA - Differential Dx/Diagnosis Provider Diagnoses: Pneumonia Discharge - Discharge Plan Condition: Stable Disposition: HOME Prescriptions: Cefuroxime Axetil [Ceftin 500 MG TAB] 500 mg PO BID 10 Days #20 tab Patient Education Materials: Pneumonia (ED) Referrals: Trino Moreau MD [Primary Care Provider] - Additional Instructions: as tolerated
[2017-08-19 15:14] VITALS: BP 139/67
--- NOTE | 2017-08-19 15:48 | RAD ---
INDICATION: Hemostasis COMPARISON: Chest x-ray dated November 06, 2016 TECHNIQUE: PA and lateral views of the chest were obtained. FINDINGS: The left upper chest cardiac pacemaker with 3 leads overlying the heart is unchanged in position from the prior chest x-ray. The heart and mediastinum are normal in size and contour. There is patchy density overlying the posterior aspect of the left lower lobe. Remaining visualized lungs are clear. There is no evidence of large pleural effusion. Visualized bones are normal for the patient's age. There is no radiographic evidence of free air beneath the diaphragm IMPRESSION: PATCHY DENSITY AT THE POSTERIOR LEFT LUNG BASE COULD REPRESENT AN INFECTIOUS PNEUMONIA IN THE CORRECT CLINICAL SETTING. FOLLOW-UP CHEST X-RAY AFTER AN APPROPRIATE COURSE OF THERAPY IS ADVISED TO ASCERTAIN RESOLUTION.
== END 2017-08-19 16:10 | disposition home or self-care (01) ==
LOC: UCEAST 13:09
DX: J18.9 Pneumonia, unspecified organism (principal); Z72.89 Other problems related to lifestyle; Z72.0 Tobacco use
CPT/HCPCS: 71020; 99212; G0463

== ENCOUNTER → 2017-09-15 13:17 | Emergency (ER) | payer MEDICARE, OTHER | END | disposition left against medical advice (07) | LOC: ED 13:17 | DX: R58 Hemorrhage, not elsewhere classified (principal); Z53.21 Procedure and treatment not carried out due to patient leaving prior to being seen by health care provider ==

== ENCOUNTER 2017-11-02 15:10 | Emergency (ER) | payer MEDICARE, OTHER | END 2017-11-02 15:22 | disposition left against medical advice (07) | LOC: UCEAST 15:10 | DX: S49.90XA Unspecified injury of shoulder and upper arm, unspecified arm, initial encounter (principal); S29.9XXA Unspecified injury of thorax, initial encounter; Z53.21 Procedure and treatment not carried out due to patient leaving prior to being seen by health care provider ==

== ENCOUNTER 2018-05-16 13:13 | Observation (INO) | payer MEDICARE, OTHER ==
[2018-05-16 14:58] LABS: ABS Basophils 0.1 10^3/ul (0-0.2); ABS Eosinophils 0 10^3/ul (0-0.6); ABS Lymphocytes 1.2 10^3/ul (1.0-4.8); ABS Monocytes 1.5 10^3/ul (0-0.8); ABS Neutrophils 15.6 10^3/ul (1.5-7.7); ABS Nucleated RBC 0 10^3/ul; Eosinophil % 0 % (0-6); Hematocrit 40 % (42-52); Hemoglobin 13.1 g/dl (14.0-18.0); Lymphocyte % 6.4 % (25-47); Mean Corpuscular HGB Conc 33 g/dl (31-36); Mean Corpuscular Hemoglobin 29 pg (27-31); Mean Corpuscular Volume 89 fL (80-94); Mean Platelet Volume 7.1 um3 (7.4-10.4); Nucleated Red Blood Cells % 0; Platelet Count 245 10^3/ul (150-450); Red Blood Count 4.52 10^6/ul (4.00-5.40); Red Cell Distribution Width 16 % (10.5-15); White Blood Count 18.3 10^3/ul (3.5-10.8)
[2018-05-16 15:17] LABS: EGFR Non-African American 58.5 (>60)
--- NOTE | 2018-05-16 15:28 | ED ---
Lower Extremity - HPI Summary HPI Summary: Pt is an 88 y/o male who presents to the ED c/o groin pain for 3 weeks. He describes the pain as 10/10 in severity, sharp, burning, and radiating down to his toes. Pt recently had his AAA repaired 4 months ago at [facility]. He also c/o abdominal pain and loose stool for 2 weeks, and denies any recent antibiotics. Pt denies any foot numbness, headache, incontinence, fever, chills, lightheadedness, dizziness, saddle anesthesia, neck pain, blurred vision, diplopia, sore throat, ear ache, CP, SOB, hematuria, or hematochezia. As per son , he has trouble walking. Son also states his fathers symptoms are similar to when he himself blew his L4 disc. Pt has a Fentanyl patch which helps with the pain. PMHx HTN, HLD, CAD, AFib, IN, stents. Pt chews on cigars as per son, but does not really smoke. - History of Current Complaint Chief Complaint: EDAbdPain Stated Complaint: ABD PAIN,DIARRHEA,HIP PAIN Hx Obtained From: Patient, Family/Operations Team Leader - Son Onset of Pain: Days - 3 weeks Onset/Duration: Still Present Severity Currently: Severe Pain Intensity: 10 Pain Scale Used: 0-10 Numeric Location: Radiates To - From left groin to foot Character Of Pain: Burning Associated Signs And Symptoms: Negative: Fever, Abdominal Pain Aggravating Factor(s): Ambulation Alleviating Factor(s): Other - Fentanyl patch - Allergies/Home Medications Allergies/Adverse Reactions: Allergies Allergy/AdvReac Type Severity Reaction Status Date / Time tramadol Allergy Unknown Unknown Verified 05/16/18 15:01 Reaction Details sertraline AdvReac Mild Diarrhea Verified 05/16/18 15:01 betablocker Allergy Unknown Unknown Uncoded 05/16/18 15:01 Reaction Details PMH/Surg Hx/FS Hx/Imm Hx Endocrine/Hematology History: Reports: Hx Anticoagulant Therapy - pt takes plavix Denies: Hx Diabetes, Hx Thyroid Disease Cardiovascular History: Reports: Hx Angina, Hx Angioplasty, Hx Atrial Fibrillation, Hx Coronary Artery Disease, Hx Hypercholesterolemia, Hx Hypertension, Hx Myocardial Infarction, Hx Pacemaker/ICD, 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 Denies: Hx Congestive Heart Failure, Other Cardiovascular Problems/Disorders Respiratory History: Reports: Other Respiratory Problems/Disorders - SPOT ON LUNG DISCOVERED 2 WKS AGO Denies: Hx Asthma, Hx Chronic Obstructive Pulmonary Disease (COPD), Hx Lung Cancer GI History: Reports: Hx Gastroesophageal Reflux Disease Denies: Hx Gastrointestinal Bleed, Hx Ulcer History: Denies: Hx Dialysis, Hx Renal Disease Musculoskeletal History: Reports: Hx Arthritis - LEFT HIP, Hx Rheumatoid Arthritis, Hx Back Problems, Other Musculoskeletal History - chronic low back pain Sensory History: Reports: Hx Cataracts - BILAT., Hx Contacts or Glasses, Hx Hearing Aid - right ear Opthamlomology History: Reports: Hx Cataracts - BILAT., Hx Contacts or Glasses Neurological History: Denies: Hx Dementia, Hx Migraine, Hx Seizures, Hx Transient Ischemic Attacks (TIA) Psychiatric History: Reports: Hx Depression Denies: Hx Panic Disorder - Surgical History Surgery Procedure, Year, and Place: cardiac stent,angioplasty, RIGHT HIP REPLACEMENT, COLON RESECTION, HERNIA;pacer/defib January 2013, ILIAC STENT 01/2018 Hx Anesthesia Reactions: No - Immunization History Immunizations Up to Date: Yes Infectious Disease History: No Infectious Disease History: Denies: Hx Clostridium Difficile, Hx Hepatitis, Hx Human Immunodeficiency Virus (HIV), Hx of Known/Suspected MRSA, Hx Shingles, Hx Tuberculosis, Traveled Outside the [place] in Last 30 Days - Family History Known Family History: Positive: Cardiac Disease - CAD, Hypertension, Other - HLD - Social History Alcohol Use: None Alcohol Amount: 2-3 SHOTS A WEEK Hx Substance Use: No Substance Use Type: Reports: None Hx Tobacco Use: Yes Smoking Status (MU): Current Some Day Smoker Type: Cigars Amount Used/How Often: Less then 1 per day Length of Time of Smoking/Using Tobacco: 30 yrs Have You Smoked in the Last Year: Yes Review of Systems Negative: Fever, Chills Negative: Blurred Vision, Diplopia Negative: Sore Throat, Ear Ache Negative: Chest Pain Negative: Shortness Of Breath Positive: Abdominal Pain, Diarrhea - Loose stool, Other - NEGATIVE: hematochezia Negative: hematuria, incontinence Positive: Myalgia - Back or Neck pain Negative: Rash, Bruising Neurological: Other - Burning pain from left groin to foot, NEGATIVE: dizziness , lightheadedness Negative: Headache, Numbness - Saddle anesthesia, foot Negative: Anxious, Depressed All Other Systems Reviewed And Are Negative: No Physical Exam - Summary Physical Exam Summary: Appearance: Alert, conversive, nontoxic appearing Skin: Warm, dry, no mottling, no rashes, no contusions HEENT: EOMI, PERRL, moist mucous membranes, hearing aid in right ear Neck: No masses on the neck, supple Respiratory: Clear to auscultation, breath sounds present, no rales, no rhonchi , no wheezes Cardiovascular: RRR, great femoral and dorsalis pedis pulses bilaterally Abdomen: Soft, non-tender, midline scar around the umbilicus Bowel Sounds: Present Musculoskeletal: No CVA tenderness, no obvious deformity, moving all extremities in a grossly normal manner, slight muscle wasting Neurological: A&Ox3, CN II-XII Intact, moving all extremities symmetrically Psychiatric: Normal affect and mood Triage Information Reviewed: Yes Vital Signs On Initial Exam: Initial Vitals Temp Pulse Resp BP Pulse Ox 97.6 F 64 18 139/68 95 05/16/18 13:24 05/16/18 13:24 05/16/18 13:24 05/16/18 13:24 05/16/18 13:24 Vital Signs Reviewed: Yes Diagnostics - Vital Signs Vital Signs Temp Pulse Resp BP Pulse Ox 05/16/18 13:24 97.6 F 64 18 139/68 95 - Laboratory Lab Results: Lab Results 05/16/18 05/16/18 Range/Units 14:52 14:52 WBC 18.3 H (3.5-10.8) 10^3/ul RBC 4.52 (4.00-5.40) 10^6/ul Hgb 13.1 L (14.0-18.0) g/dl Hct 40 L (42-52) % MCV 89 (80-94) fL MCH 29 (27-31) pg MCHC 33 (31-36) g/dl RDW 16 H (10.5-15) % Plt Count 245 (150-450) 10^3/ul MPV 7.1 L (7.4-10.4) um3 Neut % (Auto) 85.1 H (38-83) % Lymph % (Auto) 6.4 L (25-47) % [place] % (Auto) 8.1 H (0-7) % Eos % (Auto) 0 (0-6) % Baso % (Auto) 0.4 (0-2) % Absolute Neuts (auto) 15.6 H (1.5-7.7) 10^3/ul Absolute Lymphs (auto) 1.2 (1.0-4.8) 10^3/ul Absolute Monos (auto) 1.5 H (0-0.8) 10^3/ul Absolute Eos (auto) 0 (0-0.6) 10^3/ul Absolute Basos (auto) 0.1 (0-0.2) 10^3/ul Absolute Nucleated RBC 0 10^3/ul Nucleated RBC % 0 Sodium 138 (135-145) mmol/L Potassium 4.0 (3.5-5.0) mmol/L Chloride 105 (101-111) mmol/L Carbon Dioxide 25 (22-32) mmol/L Anion Gap 8 (2-11) mmol/L BUN 24 (6-24) mg/dL Creatinine 1.18 H (0.67-1.17) mg/dL Est GFR ( Amer) 70.8 (>60) Est GFR (Non-Af Amer) 58.5 (>60) BUN/Creatinine Ratio 20.3 H (8-20) Glucose 128 H (70-100) mg/dL Calcium 8.9 (8.6-10.3) mg/dL Total Bilirubin 0.90 (0.2-1.0) mg/dL AST 14 (13-39) U/L ALT 8 (7-52) U/L Alkaline Phosphatase 67 (34-104) U/L Total Protein 6.6 (6.4-8.9) g/dL Albumin 3.4 (3.2-5.2) g/dL Globulin 3.2 (2-4) g/dL Albumin/Globulin Ratio 1.1 (1-3) Result Diagrams: 05/16/18 14:52 05/16/18 14:52 Lab Statement: Any lab studies that have been ordered have been reviewed, and results considered in the medical decision making process. - Radiology CXR Xray Interpretation: Positive (See Comments) - LEFT BASAL INFILTRATE AND EFFUSION. SUGGEST FOLLOW-UP. ED physician reviewed radiology report. Radiology Interpretation Completed By: Radiologist Lower Extremity Course/Dx - Course Course Of Treatment: Pt is an 88 y/o male who presents to the ED c/o groin pain for 3 weeks. He describes the pain as 10/10 in severity, sharp, burning, and radiating down to his toes. He also c/o abdominal pain and loose stool for 2 weeks, and denies any recent antibiotics. Pt denies any foot numbness, headache , incontinence, fever, chills, lightheadedness, dizziness, saddle anesthesia, neck pain, blurred vision, diplopia, sore throat, ear ache, CP, SOB, hematuria, or hematochezia. Pt has a Fentanyl patch which helps with the pain. PMHx HTN, HLD, CAD, AFib, IN, stents. A physical exam revealed great femoral and dorsalis pedis pulses bilaterally, midline scar around the umbilicus, slight muscle wasting. A CXR revealed LEFT BASAL INFILTRATE AND EFFUSION. Final dx are PNA and dehydration. Pt will be admitted and Dr. Smith accepts pt for admission. - Diagnoses Provider Diagnoses: Pneumonia, Dehydration Discharge - Sign-Out/Discharge Documenting (check all that apply): Patient Departure - Admit, Sign-Out Patient Signing out patient TO: Mary Smith - Discharge Plan Condition: Stable Disposition: ADMITTED TO [facility] Referrals: Trino Moreau MD [Primary Care Provider] - - Billing Disposition and Condition Condition: STABLE Disposition: Admitted to [facility] - Attestation Statements Document Initiated by Piotr: Yes Documenting Scribe: Cherelle Monteiro Provider For Whom Piotr is Documenting (Include Credential): Carley Murillo MD Scribe Attestation: Cherelle Swain, scribed for Carley Murillo MD on 05/16/18 at 1704. Scribe Documentation Reviewed: Yes Provider Attestation: The documentation as recorded by the [email or web address] accurately reflects the service I personally performed and the decisions made by me, Carley Murillo MD
--- NOTE | 2018-05-16 16:13 | RAD ---
INDICATION: Cough COMPARISON: November 03, 2017 TECHNIQUE: PA and lateral dual-energy views were obtained. FINDINGS: Bones/Soft Tissues: There are no acute bony findings. There is left-sided cardiac pacemaker Cardiomediastinal: The cardiomediastinal silhouette is normal. Lungs: There is infiltrate in the left lung base. The remaining lung maldonado are clear. Pleura: Small left-sided effusion. Other: None IMPRESSION: LEFT BASAL INFILTRATE AND EFFUSION. SUGGEST FOLLOW-UP
[2018-05-16] MEDS ORDERED: fentaNYL* 50 MCG/ML 2 ML VIAL (100 MCG VIAL) IV SLOW PU ONE (16:15)
[2018-05-16] MEDS ORDERED: cefTRIAXone(*) 1 GM in NS 0.9% 50 ML* 50 ML IVPB ONE (16:25)
[2018-05-16] MEDS ORDERED: Azithromycin TAB* 250 MG PO ONE (16:25)
[2018-05-16 17:19] LABS: Urine Appearance Clear; Urine Blood 2+ (Negative); Urine Color Amber; Urine Ketones Negative (Negative); Urine Protein 2+(100 mg/dL) (Negative); Urine Red Blood Cell 2+(6-10/hpf) (Absent); Urine Specific Gravity 1.024 (1.010-1.030); Urine Urobilinogen Negative (Negative); Urine White Blood Cell Trace(0-5/hpf) (Absent)
[2018-05-16] MEDS ORDERED: Acetaminophen TAB* 325 MG PO PRN (17:24)
[2018-05-16] MEDS ORDERED: Senna TAB PO PRN (17:24)
[2018-05-16] MEDS ORDERED: Nitroglycerin TAB 0.4 MG* 0.4 MG TAB SL PRN (17:24)
[2018-05-16] MEDS ORDERED: Iodixanol* (CONTRAST) 320 MG/ML 100 ML SDV IV ONE (17:38)
[2018-05-16] MEDS ORDERED: FENTANYL 12 MCG/HR TRANSDERM SCH (18:00)
[2018-05-16] MEDS ORDERED: FENTANYL 25 MCG/HR TRANSDERM SCH (18:00)
--- NOTE | 2018-05-16 18:32 | RAD ---
EXAM: CT Angiography Abdomen and Pelvis With Intravenous Contrast CLINICAL HISTORY: 88 years old, male; Pain; Abdominal pain; Other: Left lower pelvic pain; Prior surgery; Surgery date: 1-6 months; Surgery type: Aortic stent; Additional info: Pain from left lower pelvis to left foot TECHNIQUE: Axial computed tomographic angiography images of the abdomen and pelvis with intravenous contrast. All CT scans at this facility use at least one of these dose optimization techniques: automated exposure control; mA and/or kV adjustment per patient size (includes targeted exams where dose is matched to clinical indication); or iterative reconstruction. MIP reconstructed images were created and reviewed. Coronal and sagittal reformatted images were created and reviewed. CONTRAST: 91 mL of visi administered intravenously. COMPARISON: CTA A/PW CTA ABD/PEL 04/09/2018 12:59 PM FINDINGS: VASCULATURE: Aorta: Stable postoperative changes of aortobiiliac stent for repair of abdominal aortic aneurysm and bilateral common iliac artery aneurysms which appear unchanged. No evidence for perigraft low. Stable atherosclerotic aortic and iliac and femoral artery calcifications. No dissection. Celiac trunk and mesenteric arteries: No acute findings. No occlusion or significant stenosis. Renal arteries: No acute findings. No occlusion or significant stenosis. Iliac arteries: See above. Lung bases: There is increased left lower lobe opacity suspicious for worsening pneumonitis and there is stable right lower lobe opacity which may be due to atelectatic change and/or pneumonitis. Pleural space: Stable small left pleural effusion. ABDOMEN: Liver: Stable calcified hepatic granulomata. Gallbladder and bile ducts: Unremarkable. No calcified stones. No ductal dilation. Pancreas: Unremarkable. No ductal dilation. No mass. Spleen: Unremarkable. No splenomegaly. Adrenals: Stable mild thickening of the left adrenal gland. Kidneys and ureters: Stable 14 mm calculus at the left ureteropelvic junction without significant obstructive uropathy. Stable left renal cystic lesions. Stomach and bowel: Stable postoperative changes involving the bowel. No obstruction. No mucosal thickening. PELVIS: Appendix: The appendix is not visible. Bladder: Unremarkable. No mass. Reproductive: Unremarkable as visualized. ABDOMEN and PELVIS: Intraperitoneal space: Stable calcified phleboliths in the pelvis. No significant fluid collection. No free air. Bones/joints: Stable postoperative changes of right total hip arthroplasty. Stable degenerative changes of the left hip joint. Stable diffuse osteopenia and degenerative changes of the spine. Stable mild S. type scoliosis in the lumbar spine. No acute fracture. No dislocation. Soft tissues: Unremarkable. Lymph nodes: Unremarkable. No enlarged lymph nodes. Other findings: Stable postoperative changes of ventral surgical mesh of the abdomen and pelvis. IMPRESSION: 1. Stable small left pleural effusion. 2. There is increased left lower lobe opacity suspicious for worsening pneumonitis and there is stable right lower lobe opacity which may be due to atelectatic change and/or pneumonitis. 3. Stable 14 mm calculus at the left ureteropelvic junction without significant obstructive uropathy. 4. Stable postoperative changes of aortobiiliac stent for repair of abdominal aortic aneurysm and bilateral common iliac artery aneurysms which appear unchanged. No evidence for perigraft low.
[2018-05-16] MEDS: Gabapentin CAP(*) 100 MG PO SCH (20:26)
[2018-05-16] MEDS: Apixaban* 5 MG TAB PO SCH (20:27)
--- NOTE | 2018-05-16 23:54 | HP ---
CC: Dr. Moreau; Dr. Hussein * HISTORY AND PHYSICAL: DATE OF ADMISSION: 05/16/18 PRIMARY CARE PROVIDER: Dr. Moreau. CHIEF COMPLAINT: Left leg pain. HISTORY OF PRESENT ILLNESS: Mr. Best is an 88-year-old male, who has a history of hypertension, coronary artery disease, hyperlipidemia, and chronic low back pain radiating to the left hip, who presents to the emergency room with complaints of left leg pain. The patient states that he has had pain similar to this in the past; however, this has much more severe than it has been previously. He states that he has sharp shooting pain into his groin and scrotum traveling down the back of the leg to the lateral aspect of the left foot on the posterior surface of the foot. The pain in the foot is noted to be burning in nature. The patient has been having a difficult time ambulating because of this. He states that this has been going on for the last 2 to 3 weeks. He does have chronic back pain radiating to the left hip, but this is different than his usual pain. In addition, the patient states that he has been having diarrhea for 2 weeks. When I asked to clarify how often he is going to the bathroom, he states he has 1 loose stool a day. He denies any recent antibiotic use. His son also states that he has been complaining of abdominal pain over the last couple weeks. The patient currently states that he does not have any pain; however, the patient will come and go. He describes this as a dull ache, going across the middle of his abdomen horizontally. He states nothing makes it better or worse. In the emergency room, the patient was also found to have an elevated white blood cell count of 18.3000 and concerned for left basilar infiltrate and effusion. Because of the concern for pneumonia, the hospitalist service was asked to evaluate the patient for admission. PAST MEDICAL HISTORY: 1. History of vertebral fractures. 2. Coronary artery disease. 3. Hypertension. 4. Hyperlipidemia. 5. Chronic low back and hip pain. 6. Diverticulosis. 7. History of pacemaker. The patient is unsure why. PAST SURGICAL HISTORY: 1. Bilateral iliac stents in November 2017. 2. Right hip replacement. 3. Bilateral cataracts obstruction. 4. The patient has a vertical midline abdominal scar, though he is unable to tell me what he had done surgically. MEDICATIONS: 1. Senna 2 tabs p.o. q.h.s. p.r.n. insomnia. 2. Multivitamin 1 tab p.o. daily. 3. Fentanyl patch 37.5 mcg topically q.72 hours. 4. Tylenol 650 mg p.o. q.4 hours p.r.n. pain. 5. Ramipril 5 mg p.o. daily. 6. Nitroglycerin 0.4 mg SL q.5 minutes p.r.n. chest pain. 7. Prozac 20 mg p.o. daily. 8. Lipitor 20 mg p.o. daily. 9. Amlodipine 2.5 mg p.o. daily. 10. Magnesium oxide 400 mg p.o. daily. 11. Spironolactone 12.5 mg p.o. daily. 12. Eliquis 5 mg p.o. b.i.d. ALLERGIES: BETA-BLOCKERS, TRAMADOL, SERTRALINE. FAMILY HISTORY: Mom at the age of 53. He thinks of a brain aneurysm. His dad at the age of 73. He is unaware of his health history. SOCIAL HISTORY: The patient does admit to smoking cigars on occasion. He is a former cigarette smoker of 2 packs per day for 15 years. He quit smoking cigarettes approximately 40 years ago. He does not drink alcohol. 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 He is . He has 2 children. He indicates that his , Izzy, and his son, Nnamdi, would be his healthcare proxies. REVIEW OF SYSTEMS: The patient denies any fever, chills, or anorexia. No complaints of unexplained weight loss. No chest pain. No edema. No shortness of breath. He has had a cough over the last 1 week. He is bringing up clear sputum. He has no shortness of breath. No nausea or vomiting. He admits to abdominal pain and loose stools as above. No hematochezia. No hematuria. No dysuria. No focal weakness or sensory loss. No sudden change in his vision. No dysphagia. No joint pains or muscle pains out of the ordinary outside of the left leg pain noted above. No rashes. No anxiety or depression. PHYSICAL EXAMINATION GENERAL: The patient is a well-developed, elderly male, seen sitting up in the stretcher, in no acute distress. VITAL SIGNS: Blood pressure 141/73, pulse 62, respirations 16, temp 97.6, O2 sats 97% on room air. HEENT: Pupils are equal and round. There is evidence of prior cataract extraction. Extraocular muscles are intact. Oropharynx is clear. Oral mucosa is moist. The patient wears upper dentures and what appears to be a low bridge. NECK: There is no submandibular, cervical, or supraclavicular adenopathy. Thyroid is nonenlarged. No thyroid nodules noted. PULMONARY: There are bibasilar crackles at the left being worse than the right. There are no ETA changes. CARDIAC: Normal S1, S2. Regular rate and rhythm. I do not appreciate any murmurs. There is no lower extremity edema. ABDOMEN: Bowel sounds are present. Abdomen is soft, nontender, nondistended. A vertical midline scar is noted. MUSCULOSKELETAL: There is no cyanosis or clubbing of the digits. There is full active range of motion of the upper extremities. Lower extremity range of motion is limited due to pain in the left leg. SKIN: Warm and dry. There are no rashes. NEUROLOGIC: Cranial nerves II through XII are grossly intact. Sensation is intact to light touch throughout. Strength is 5/5 and symmetric in both upper and lower extremities bilaterally. PSYCH: The patient is alert. He is oriented x3. Affect appears appropriate. DIAGNOSTIC STUDIES/LAB DATA: LABS: WBC 18.3, hemoglobin 13.1, hematocrit 40, platelets 245. Sodium 138, potassium 4.0, chloride 105, CO2 of 25, BUN 24, creatinine 1.18, glucose 128, lactic acid 1.2, calcium 8.9. Bilirubin 0.9, AST 14, ALT 8, alk phos 67, albumin 3.4. Urinalysis reveals urine specific gravity of 1.024, 2+ protein, 2+ blood, 2+ rbc's, and squamous epithelial cells are present. Chest x-ray reveals left basal infiltrate and effusion. ASSESSMENT AND PLAN: Mr. Best is an 88-year-old male with a history of hypertension, hyperlipidemia, coronary artery disease, and pacemaker (the patient is unclear why this was placed) who presents to the emergency room with complaints of left lower extremity pain, and was found to have a significant leukocytosis and possible left lower lobe pneumonia. 1. Left leg pain. I suspect this leg pain represents sciatica. The patient has had previous issues with sciatica. The patient does describe shooting quality and burning quality to the pain. Because of how he describes this, I will go ahead and start gabapentin 100 mg p.o. t.i.d. The patient's son states that he wants us to be very cautious in the pain medications that are utilized. At this point, the patient will continue on fentanyl patch at the current dose and p.r.n. Tylenol. If additional pain medication is needed, this can be requested with the on-call provider. 2. Left lower lobe pneumonia. The patient does not have significant symptoms, though does state over the last 1 week, he has had an increased cough. Because of the leukocytosis and findings on chest x-ray, the patient will be continued on therapy for a possible community-acquired pneumonia of the left lower lobe. The most likely pathogen is strep pneumoniae; this is the most common cause of pneumonia and the patient is not at risk for other more complicated infections. He will continue on ceftriaxone and azithromycin for now. Followup white blood cell count will be obtained tomorrow. If the patient remains stable and his white blood cell count is improved from tomorrow, he can likely be discharged home as long as his pain is under control. 3. Loose stool. The patient reports having 1 loose stool a day. I am not very concerned about this. He had a CTA of the abdomen and pelvis, which did not reveal any significant intraabdominal findings. I have no explanation to the patient's intermittent pain or loose stools. This can be monitored intermittently and he can follow up with his primary care provider for further evaluation of this. 4. Coronary artery disease. The patient will be maintained on his usual doses of Lipitor, Plavix, and ramipril. He will continue p.r.n. nitroglycerin as needed for chest pain, though this has not been an issue for the patient recently. 5. Hypertension. The patient's blood pressure is under good control. He will be maintained on his usual home medication regimen. 6. Hyperlipidemia. We will continue Lipitor. 7. Atrial fibrillation. The patient does not report a history of this, however based on his medications including Eliquis this seems most likely. I have found a note from Dr. Hussein that does indicate he has a history of atrial fibrillation. He not only has a pacemaker in place, but this appears to be a defibrillator. The patient previously had an EF of 20% to 25%. 8. DVT prophylaxis. According to the Adult Thrombosis Prophylaxis Risk Factor Assessment Guide, the patient has a total risk factor score of 4 making him high risk. The patient is already on Eliquis and this will act as DVT prophylaxis. 9. Code status is full. TIME SPENT: Sixty-five minutes was spent admitting this patient. [id number]/[facility] #: [id number] SHAHID
[2018-05-17 06:15] LABS: ABS Basophils 0.1 10^3/ul (0-0.2); ABS Eosinophils 0.2 10^3/ul (0-0.6); ABS Lymphocytes 1.5 10^3/ul (1.0-4.8); ABS Monocytes 1.4 10^3/ul (0-0.8); ABS Neutrophils 8.3 10^3/ul (1.5-7.7); ABS Nucleated RBC 0 10^3/ul; Eosinophil % 1.8 % (0-6); Hematocrit 36 % (42-52); Hemoglobin 11.8 g/dl (14.0-18.0); Lymphocyte % 13.4 % (25-47); Mean Corpuscular HGB Conc 33 g/dl (31-36); Mean Corpuscular Hemoglobin 29 pg (27-31); Mean Corpuscular Volume 89 fL (80-94); Mean Platelet Volume 7.5 um3 (7.4-10.4); Nucleated Red Blood Cells % 0; Platelet Count 218 10^3/ul (150-450); Red Blood Count 4.04 10^6/ul (4.00-5.40); Red Cell Distribution Width 16 % (10.5-15); White Blood Count 11.5 10^3/ul (3.5-10.8)
[2018-05-17 06:34] LABS: EGFR Non-African American 65.5 (>60)
[2018-05-17] MEDS ORDERED: fentaNYL Patch Check Q Shift 1 NOTE FOLLOW UP SCH (07:00)
[2018-05-17] MEDS: Apixaban* 5 MG TAB PO SCH (08:30)
[2018-05-17] MEDS: Gabapentin CAP(*) 100 MG PO SCH ×2 (08:31→14:57)
[2018-05-17] MEDS ORDERED: Spironolactone TAB* 25 MG PO SCH (09:00)
[2018-05-17] MEDS ORDERED: Vitamin THERAPEUTIC TAB PO SCH (09:00)
[2018-05-17] MEDS ORDERED: Magnesium Oxide TAB* 400 MG PO SCH (09:00)
[2018-05-17] MEDS ORDERED: Clopidogrel TAB* 75 MG PO SCH (09:00)
[2018-05-17] MEDS ORDERED: FLUoxetine CAP* 20 MG PO SCH (09:00)
[2018-05-17] MEDS ORDERED: Ramipril CAP* 5 MG PO SCH (09:00)
[2018-05-17] MEDS ORDERED: Atorvastatin* 20 MG TAB PO SCH (09:00)
[2018-05-17] MEDS ORDERED: Azithromycin TAB* 250 MG PO SCH (09:00)
[2018-05-17] MEDS ORDERED: amLODIPine TAB* 5 MG PO SCH (09:00)
--- NOTE | 2018-05-17 09:05 | PN ---
<Marvin Green - Last Filed: 05/17/18 12:02> Subjective Date of Service: 05/17/18 Interval History: Pt states he feels better today. He is awake and alert to surroundings with good mood and affect. He denies any CP or dyspnea and states that he isn't experiencing any leg pain or discomfort today. Family History: Unchanged from Admission Social History: Unchanged from Admission Past Medical History: Unchanged from Admission Objective Active Medications: Acetaminophen (Tylenol Tab*) 650 mg PO Q4HR PRN PRN Reason: PAIN Last Admin: 05/16/18 20:29 Dose: 650 mg Amlodipine Besylate (Norvasc Tab*) 2.5 mg PO DAILY [facility] Last Admin: 05/17/18 08:32 Dose: 2.5 mg Apixaban (Eliquis*) 5 mg PO BID [facility] Last Admin: 05/17/18 08:30 Dose: 5 mg Atorvastatin Calcium (Lipitor*) 20 mg PO DAILY [facility] Last Admin: 05/17/18 08:30 Dose: 20 mg Azithromycin (Zithromax Tab*) 250 mg PO DAILY [facility] Last Admin: 05/17/18 08:31 Dose: 250 mg Clopidogrel Bisulfate (Plavix Tab*) 75 mg PO DAILY [facility] Last Admin: 05/17/18 08:30 Dose: 75 mg Fentanyl (Duragesic Patch 12 Mcg/Hr *) 12 mcg TRANSDERM Q72H [facility] Last Admin: 05/16/18 19:53 Dose: 12 mcg Fentanyl (Duragesic Patch 25 Mcg/Hr*) 25 mcg TRANSDERM Q72H [facility] Last Admin: 05/16/18 19:54 Dose: 25 mcg Fluoxetine HCl (Prozac Cap*) 20 mg PO DAILY [facility] Last Admin: 05/17/18 08:31 Dose: 20 mg Gabapentin (Neurontin Cap(*)) 100 mg PO TID [facility] Last Admin: 05/17/18 08:31 Dose: 100 mg Ceftriaxone Sodium 1 gm/ (Sodium Chloride) 50 mls @ 200 mls/hr IVPB Q24H [facility] Magnesium Oxide (Magox 400 Tab*) 400 mg PO DAILY [facility] Last Admin: 05/17/18 08:31 Dose: 400 mg Multivitamins (Theragran Tab*) 1 tab PO DAILY [facility] Last Admin: 05/17/18 08:32 Dose: 1 tab Nitroglycerin (Nitroglycerin Tab 0.4 Mg*) 0.4 mg SL Q5M PRN PRN Reason: ANGINA Pharmacy Profile Note (Fentanyl Patch Check Q Shift) 1 note FOLLOW UP 0700, 1900 [facility] Last Admin: 05/17/18 07:00 Dose: 1 note Ramipril (Altace Cap*) 5 mg PO DAILY [facility] Last Admin: 05/17/18 08:32 Dose: 5 mg Senna (Senokot Tab*) 2 tab PO BEDTIME PRN PRN Reason: CONSTIPATION Spironolactone (Aldactone Tab*) 12.5 mg PO DAILY [facility] Last Admin: 05/17/18 08:32 Dose: 12.5 mg Vital Signs - 8 hr 05/17/18 05/17/18 05/17/18 03:33 07:37 08:31 Temperature 97.2 F 97.4 F Pulse Rate 64 60 Respiratory 18 14 16 Rate Blood Pressure 147/62 147/72 (mmHg) O2 Sat by Pulse 98 93 Oximetry 05/17/18 08:36 Temperature Pulse Rate Respiratory 16 Rate Blood Pressure (mmHg) O2 Sat by Pulse Oximetry Oxygen Devices in Use Now: None Eyes: No Scleral Icterus Ears/Nose/Mouth/Throat: Clear Oropharnyx, Mucous Membranes Moist Neck: NL Appearance and Movements; NL JVP, Trachea Midline Respiratory: Symmetrical Chest Expansion and Respiratory Effort, Clear to Auscultation, - - diminshed breath sounds in bases, pt continues to have productive cough with clear sputum Cardiovascular: NL Sounds; No Murmurs; No JVD Abdominal: - - BS present, LLQ pain on palpation Lymphatic: No Cervical Adenopathy Extremities: No Edema Skin: No Rash or Ulcers Neurological: Alert and Oriented x 3 Result Diagrams: 05/17/18 05:21 05/17/18 05:21 Additional Lab and Data: Lab Results 05/16/18 05/16/18 Range/Units 14:52 14:52 WBC 18.3 H (3.5-10.8) 10^3/ul RBC 4.52 (4.00-5.40) 10^6/ul Hgb 13.1 L (14.0-18.0) g/dl Hct 40 L (42-52) % MCV 89 (80-94) fL MCH 29 (27-31) pg MCHC 33 (31-36) g/dl RDW 16 H (10.5-15) % Plt Count 245 (150-450) 10^3/ul MPV 7.1 L (7.4-10.4) um3 Neut % (Auto) 85.1 H (38-83) % Lymph % (Auto) 6.4 L (25-47) % Metcalfe % (Auto) 8.1 H (0-7) % Eos % (Auto) 0 (0-6) % Baso % (Auto) 0.4 (0-2) % Absolute Neuts (auto) 15.6 H (1.5-7.7) 10^3/ul Absolute Lymphs (auto) 1.2 (1.0-4.8) 10^3/ul Absolute Monos (auto) 1.5 H (0-0.8) 10^3/ul Absolute Eos (auto) 0 (0-0.6) 10^3/ul Absolute Basos (auto) 0.1 (0-0.2) 10^3/ul Absolute Nucleated RBC 0 10^3/ul Nucleated RBC % 0 Sodium 138 (135-145) mmol/L Potassium 4.0 (3.5-5.0) mmol/L Chloride 105 (101-111) mmol/L Carbon Dioxide 25 (22-32) mmol/L Anion Gap 8 (2-11) mmol/L BUN 24 (6-24) mg/dL Creatinine 1.18 H (0.67-1.17) mg/dL Est GFR ( Amer) 70.8 (>60) Est GFR (Non-Af Amer) 58.5 (>60) BUN/Creatinine Ratio 20.3 H (8-20) Glucose 128 H (70-100) mg/dL Calcium 8.9 (8.6-10.3) mg/dL Total Bilirubin 0.90 (0.2-1.0) mg/dL AST 14 (13-39) U/L ALT 8 (7-52) U/L Alkaline Phosphatase 67 (34-104) U/L Total Protein 6.6 (6.4-8.9) g/dL Albumin 3.4 (3.2-5.2) g/dL Globulin 3.2 (2-4) g/dL Albumin/Globulin Ratio 1.1 (1-3) Assess/Plan/Problems-Billing Mr. Best is an 88 y/o male who came to the ER yesterday for 3-week hx of left leg pain radiating to the groin and abd pain with loose stools. On admission he had bibasilar crackles on auscultation and was found to have a left sided pleural effusion and L-lower lobe opacity. - Patient Problems (1) Community acquired pneumonia Current Visit: Yes Status: Acute Code(s): J18.9 - PNEUMONIA, UNSPECIFIED ORGANISM SNOMED Code(s): 078372811 Comment: Pt has improved leukocytosis and no fever with diminished lung sounds in the bases. Pt denies any dyspnea but does continue to have a cough. (2) Sciatica Current Visit: Yes Status: Acute Code(s): M54.30 - SCIATICA, UNSPECIFIED SIDE SNOMED Code(s): 44985878 Comment: Pt given gabapentin for leg pain yesterday; pt stated his legs and groin are pain free with good motor and sensory function in feet. Continue gabapentin tx for pain. (3) HTN (hypertension) Current Visit: Yes Status: Acute Code(s): I10 - ESSENTIAL (PRIMARY) HYPERTENSION SNOMED Code(s): 66627898 Comment: BP remains chronically elevated; increase amlodipine to 5mg (4) Hyperlipidemia Current Visit: Yes Status: Acute Code(s): E78.5 - HYPERLIPIDEMIA, UNSPECIFIED SNOMED Code(s): 10963725 Comment: Continue lipitor (5) Coronary artery disease Current Visit: Yes Status: Acute Code(s): I25.10 - ATHSCL HEART DISEASE OF [place] CORONARY ARTERY W/O ANG PCTRS SNOMED Code(s): 91272681 Comment: continue plavix, lipitor, ramipril and NTG PRN (6) Atrial fibrillation Current Visit: No Status: Chronic Code(s): I48.91 - UNSPECIFIED ATRIAL FIBRILLATION SNOMED Code(s): 09718815 (7) DVT prophylaxis Current Visit: Yes Status: Acute Code(s): ECA4595 - SNOMED Code(s): 101078114 Comment: Pt is currently on eliquis & plavix (8) Full code status Current Visit: Yes Status: Acute Code(s): Z78.9 - OTHER SPECIFIED HEALTH STATUS SNOMED Code(s): 090334179 <Mary Smith M - Last Filed: 05/17/18 15:33> Objective Active Medications: Acetaminophen (Tylenol Tab*) 650 mg PO Q4HR PRN PRN Reason: PAIN Last Admin: 05/16/18 20:29 Dose: 650 mg Amlodipine Besylate (Norvasc Tab*) 2.5 mg PO DAILY [facility] Last Admin: 05/17/18 08:32 Dose: 2.5 mg Apixaban (Eliquis*) 5 mg PO BID [facility] Last Admin: 05/17/18 08:30 Dose: 5 mg Atorvastatin Calcium (Lipitor*) 20 mg PO DAILY [facility] Last Admin: 05/17/18 08:30 Dose: 20 mg Azithromycin (Zithromax Tab*) 250 mg PO DAILY [facility] Last Admin: 05/17/18 08:31 Dose: 250 mg Clopidogrel Bisulfate (Plavix Tab*) 75 mg PO DAILY [facility] Last Admin: 05/17/18 08:30 Dose: 75 mg Fentanyl (Duragesic Patch 12 Mcg/Hr *) 12 mcg TRANSDERM Q72H [facility] Last Admin: 05/16/18 19:53 Dose: 12 mcg Fentanyl (Duragesic Patch 25 Mcg/Hr*) 25 mcg TRANSDERM Q72H [facility] Last Admin: 05/16/18 19:54 Dose: 25 mcg Fluoxetine HCl (Prozac Cap*) 20 mg PO DAILY [facility] Last Admin: 05/17/18 08:31 Dose: 20 mg Gabapentin (Neurontin Cap(*)) 100 mg PO TID [facility] Last Admin: 05/17/18 14:57 Dose: 100 mg Ceftriaxone Sodium 1 gm/ (Sodium Chloride) 50 mls @ 200 mls/hr IVPB Q24H [facility] Magnesium Oxide (Magox 400 Tab*) 400 mg PO DAILY [facility] Last Admin: 05/17/18 08:31 Dose: 400 mg Multivitamins (Theragran Tab*) 1 tab PO DAILY [facility] Last Admin: 05/17/18 08:32 Dose: 1 tab Nitroglycerin (Nitroglycerin Tab 0.4 Mg*) 0.4 mg SL Q5M PRN PRN Reason: ANGINA Pharmacy Profile Note (Fentanyl Patch Check Q Shift) 1 note FOLLOW UP 0700, 1900 [facility] Last Admin: 05/17/18 07:00 Dose: 1 note Ramipril (Altace Cap*) 5 mg PO DAILY [facility] Last Admin: 05/17/18 08:32 Dose: 5 mg Senna (Senokot Tab*) 2 tab PO BEDTIME PRN PRN Reason: CONSTIPATION Spironolactone (Aldactone Tab*) 12.5 mg PO DAILY [facility] Last Admin: 05/17/18 08:32 Dose: 12.5 mg Vital Signs - 8 hr 05/17/18 05/17/18 05/17/18 07:37 08:31 08:36 Temperature 97.4 F Pulse Rate 60 Respiratory 14 16 16 Rate Blood Pressure 147/72 (mmHg) O2 Sat by Pulse 93 Oximetry 05/17/18 05/17/18 05/17/18 11:01 11:15 14:57 Temperature Pulse Rate 60 Respiratory 18 16 18 Rate Blood Pressure 129/65 (mmHg) O2 Sat by Pulse 97 Oximetry Result Diagrams: 05/17/18 05:21 05/17/18 05:21 Assess/Plan/Problems-Billing Assessment: Status and Disposition: ADDENDUM: I have personally seen and examined Mr. Best. I have reviewed the case with Ad MAE student and agree with his subjective assessment, physical exam and assessment and plan. In short Mr Best is feeling better today. He has had improvement in his L LE pain. He feels his breathing is comfortable. He is not bringing up any sputum. VSS, afebrile, no crackles heard on exam today. Pt did well with PT. Plan to continue treatment for CAP with vantin x6 more days and azithromycin x3more days. Continue gabapentin 100mg TID. Plan to follow up with Dr. Moreau in 4-7 days.
[2018-05-17 11:39] VITALS: BP 129/65
[2018-05-17] MEDS ORDERED: cefTRIAXone(*) 1 GM in NS 0.9% 50 ML* 50 ML IVPB SCH (16:00)
--- NOTE | 2018-05-17 21:17 | DS ---
CC: Dr. Moreau * DISCHARGE SUMMARY: DATE OF ADMISSION: 05/16/18 DATE OF DISCHARGE: 05/17/18 PRIMARY CARE PROVIDER: Dr. Moreau. PRINCIPAL DIAGNOSES: 1. Possible left lower lobe pneumonia. 2. Left sciatica. SECONDARY DIAGNOSES: 1. Coronary artery disease. 2. Hypertension. 3. Hyperlipidemia. 4. Atrial fibrillation. 5. 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 DISCHARGE MEDICATIONS: 1. Senna 2 tabs p.o. q.h.s. p.r.n. constipation. 2. Multivitamin 1 cap p.o. daily. 3. Plavix 75 mg p.o. daily. 4. Tylenol 650 mg p.o. q.4 hours p.r.n. pain. 5. Ramipril 5 mg p.o. daily. 6. Nitroglycerin 0.4 mg SL q.5 minutes p.r.n. chest pain. 7. Prozac 20 mg p.o. daily. 8. Lipitor 20 mg p.o. daily. 9. Amlodipine 2.5 mg p.o. daily. 10. Magnesium oxide 400 mg p.o. daily. 11. Spironolactone 12.5 mg p.o. daily. 12. Eliquis 5 mg p.o. b.i.d. 13. Fentanyl patch 37.5 mcg (12 mcg + 25 mcg) patch topically q.72 hours. 14. Gabapentin 100 mg p.o. t.i.d. (new). 15. Vantin 200 mg p.o. q.12 hours x12 doses. 16. Azithromycin 250 mg p.o. daily x3 doses. HOSPITAL COURSE: Mr. Best is an 88-year-old male, who presented to the emergency room with complaints of left leg pain. In the emergency room, he was identified to have a leukocytosis and crackles on pulmonary exam. The patient ultimately was admitted for pain control related to the left sciatica and treatment for possible left lower lobe pneumonia. The patient was started on gabapentin for his left sciatica pain. In general, he has had improvement in his pain. He did still have shooting pain while up and walking with PT. The patient has now become too sleepy with this medication. I did instruct the patient's son to continue to monitor his mental status to ensure he does not become too drowsy on the gabapentin. If the gabapentin is helping, but his pain is not dramatically better, perhaps this dose could be increased as long as the patient is able to tolerate it. The patient can follow up with outpatient physical therapy if needed. The patient was admitted for a possible pneumonia. His white blood cell count went from 18,300 to 11,500 on the day of discharge. He was afebrile; however, he did have crackles on exam and noted increased cough over the last 1 week. The patient received ceftriaxone and azithromycin in the emergency room. He will continue on Vantin and azithromycin orally. The patient is stable in terms of his respiratory standpoint. The patient will be maintained on all of his usual home medications. FOLLOWUP CONCERNS: The patient is being discharged home today, 05/17/18. ACTIVITY LEVEL: As tolerated. DIET: Regular. CONDITION ON DISCHARGE: Stable. DISCHARGE FOLLOWUP: The patient should follow up with Dr. Moreau in the next 4 to 7 days. Additionally, the patient reportedly missed his pain management appointment on the day of admission. He was out of his prescription for his fentanyl patch. I did prescribe a prescription for a 12 plus 25 mcg patch. I dispensed 3 patches of each. The patient's son has been instructed to get the patient a followup appointment in the next 1 week. TIME SPENT: 35 minutes were spent discharging this patient. [id number]/[facility] #: [id number] SHAHID
[2018-05-19] MEDS ORDERED: FENTANYL 37.5 MCG TRANSDERM SCH (09:00)
== END 2018-05-17 15:50 | disposition home or self-care (01) ==
LOC: ED 13:13 → MED 17:36
PROVIDERS: ADMIT Hospitalist; ATTEND Hospitalist
DX: M54.32 Sciatica, left side (principal); J18.9 Pneumonia, unspecified organism; I25.10 Atherosclerotic heart disease of native coronary artery without angina pectoris; I10 Essential (primary) hypertension; E78.5 Hyperlipidemia, unspecified; I48.91 Unspecified atrial fibrillation; M54.2 Cervicalgia; M25.552 Pain in left hip; G89.29 Other chronic pain; Z95.0 Presence of cardiac pacemaker; K57.90 Diverticulosis of intestine, part unspecified, without perforation or abscess without bleeding; Z79.01 Long term (current) use of anticoagulants; Z79.899 Other long term (current) drug therapy; Z88.8 Allergy status to other drugs, medicaments and biological substances; F17.290 Nicotine dependence, other tobacco product, uncomplicated; Z95.5 Presence of coronary angioplasty implant and graft
CPT/HCPCS: 36415; 71045; 74174; 80048; 80053; 81003; 81015; 83605; 85025; 87040; 87086; 96365; 96375; 99283; A9270-GY; G0378; G8978-GP-CJ; G8979-GP-CH; J0696; J3010; Q9967

== ENCOUNTER 2018-05-21 18:17 | Emergency (ER) | payer MEDICARE, OTHER ==
[2018-05-21 18:36] VITALS: BP 141/67
--- NOTE | 2018-05-21 19:10 | UC ---
General HPI - HPI Summary HPI Summary: Complains of increased fatigue x 4 days, fall last night out of bed with subsequent ecchymosis around right eye, and an episode of near syncope today after standing. Denies pain or vision change to right eye, AMS, speech deficits , focal deficits, fever, cough, sore throat, CP, SOB, N/V/D, abdominal pain, change in urine or BM. Family was not present for near syncopal episode, but denies observing AMS, focal deficits, speech change, facial droop since being in pt's presence. Patient states he felt like he was going to fall asleep when he stood up, and was able to let himself down to the ground. Denies further injury. Patient has history of recent diagnosis of pneumonia 05/17/18, with an overnight admission to [facility]. Discharged and currently taking 2 antibiotics. Patient recently started on gabapentin 4-5 days ago, and was warned Gabapentin could cause increased fatigue. Medical history includes CAD, CHF, AAA with recent surgery, HTN, paroxysmal A. fib, HDL. Positive anti-coagulation. - History of Current Complaint Chief Complaint: UCEye Stated Complaint: EYE INJURY Time Seen by Provider: 05/21/18 18:41 Hx Obtained From: Patient, Family/Bilingual Customer Service Specialist Onset/Duration: Gradual Onset Timing: Constant Current Severity: None Pain Intensity: 0 Associated Signs & Symptoms: Positive: Anticoagulation Therapy - Allergy/Home Medications Allergies/Adverse Reactions: Allergies Allergy/AdvReac Type Severity Reaction Status Date / Time Beta-Blockers Allergy Unknown See Comment Verified 05/21/18 18:27 (Beta-Adrenergic Bloc tramadol Allergy Unknown Unknown Verified 05/21/18 18:27 Reaction Details sertraline AdvReac Mild Diarrhea Verified 05/21/18 18:27 PMH/Surg Hx/FS Hx/Imm Hx Endocrine History: Dyslipidemia Cardiovascular History: Cardiac Disease, Hypertension, Congestive Heart Failure , Atrial Fibrillation Respiratory History: Pneumonia Other History Of: Anticoagulant Therapy - pt takes plavix - Surgical History Surgical History: Yes Surgery Procedure, Year, and Place: cardiac stent,angioplasty, RIGHT HIP REPLACEMENT, COLON RESECTION, HERNIA;pacer/defib January 2013, bilateral ILIAC STENT 01/2018 - Family History Known Family History: Positive: Unknown - pt is a poor historian, Cardiac Disease - CAD, Hypertension, Other - HLD - Social History Alcohol Use: Rare Alcohol Amount: 2-3 SHOTS A WEEK Substance Use Type: None Smoking Status (MU): Current Some Day Smoker Type: Cigars Amount Used/How Often: Less then 1 per day Length of Time of Smoking/Using Tobacco: 30 yrs Have You Smoked in the Last Year: Yes Household Exposure Type: Cigars - Immunization History Most Recent Influenza Vaccination: 2017 Most Recent Pneumonia Vaccination: UTD Review of Systems Constitutional: Negative Skin: Negative Eyes: Negative ENT: Negative Respiratory: Negative Cardiovascular: Negative Gastrointestinal: Negative Genitourinary: Negative Motor: Negative Neurovascular: Negative Musculoskeletal: Negative Neurological: Negative Psychological: Negative Is Patient Immunocompromised?: No All Other Systems Reviewed And Are Negative: Yes Physical Exam - Summary Physical Exam Summary: Right periorbital ecchymosis. EOMs intact. No obvious deformity, swelling to nose, right side face. Full range of motion of jaw. No evidence of trauma to tongue or teeth or lips. Neuro exam normal. Full range of motion of neck. No pain with palpation of head, neck, face. Full range of motion of bilateral upper extremities and bilateral lower extremities without indication of pain. Abdomen soft nontender. Triage Information Reviewed: Yes Appearance: Well-Appearing Vital Signs: Initial Vital Signs Temp 97.3 F 05/21/18 18:27 Pulse 59 05/21/18 18:27 Resp 18 05/21/18 18:27 BP 141/67 05/21/18 18:27 Pulse Ox 99 05/21/18 18:27 Vital Signs Reviewed: Yes Eye Exam: Normal Neck exam: Normal Neck: Positive: Supple, Nontender Respiratory Exam: Normal Cardiovascular Exam: Normal Abdominal Exam: Normal Musculoskeletal Exam: Normal Neurological Exam: Normal Psychological Exam: Normal Skin Exam: Normal Course/Dx - Course Course Of Treatment: Complains of increased fatigue x 4 days, fall last night out of bed with subsequent ecchymosis around right eye, and an episode of near syncope today after standing. Denies pain or vision change to right eye, AMS, speech deficits, focal deficits, fever, cough, sore throat, CP, SOB, N/V/D, abdominal pain, change in urine or BM. Family was not present for near syncopal episode, but denies observing AMS, focal deficits, speech change, facial droop since being in pt's presence. Patient states he felt like he was going to fall asleep when he stood up, and was able to let himself down to the ground. Denies further injury. Patient has history of recent diagnosis of pneumonia 05/17/18, with an overnight admission to [facility]. Discharged and currently taking 2 antibiotics. Patient recently started on gabapentin 4-5 days ago, and was warned Gabapentin could cause increased fatigue. Medical history includes CAD, CHF, AAA with recent surgery, HTN, paroxysmal A. fib, HDL. Positive anti-coagulation. Physical exam:Right periorbital ecchymosis. EOMs intact. No obvious deformity, swelling to nose, right side face. Full range of motion of jaw. No evidence of trauma to tongue or teeth or lips. Neuro exam normal. Full range of motion of neck. No pain with palpation of head, neck, face. Full range of motion of bilateral upper extremities and bilateral lower extremities without indication of pain. Abdomen soft nontender. Vital signs normal and stable. Patient has multiple comorbidities. Advised to go to the ED now for further evaluation of near syncopal episode, increasing fatigue, facial trauma. Patient and family understand and approve of plan. Will travel by private vehicle. - Differential Dx - Multi-Symptom Provider Diagnoses: fall. near syncope. fatigue Discharge - Sign-Out/Discharge Documenting (check all that apply): Patient Departure All imaging exams completed and their final reports reviewed: No Studies - Discharge Plan Condition: Fair Disposition: HOME-RECOMMEND TO ED Referrals: Trino Moreau MD [Primary Care Provider] - Additional Instructions: Please go to the ED now for further evaluation of fall, near syncope and fatigue. - Billing Disposition and Condition Condition: FAIR Disposition: Home-Recommend to ED - Attestation Statements Provider Attestation: Per institutional requirements, I have reviewed the chart, however, I was not consulted specifically or made aware of this patient by the midlevel provider. I did not personally evaluate, interact with , or disposition this patient.
== END 2018-05-21 19:15 | disposition home health service (06) ==
LOC: UCEAST 18:17
DX: R55 Syncope and collapse (principal); R53.83 Other fatigue; I48.91 Unspecified atrial fibrillation; Z79.01 Long term (current) use of anticoagulants; Z95.5 Presence of coronary angioplasty implant and graft; Z96.641 Presence of right artificial hip joint; Z88.5 Allergy status to narcotic agent; Z88.8 Allergy status to other drugs, medicaments and biological substances; Z72.0 Tobacco use
CPT/HCPCS: 99212; G0463

== ENCOUNTER 2018-09-07 12:44 | Observation (INO) | payer MEDICARE, OTHER ==
--- NOTE | 2018-09-07 17:11 | ED ---
Complex/Multi-Sys Presentation - HPI Summary HPI Summary: This pt is an 88 y/o male, accompanied by his son Nnamdi, presenting to [facility] for SOB, lower extremity edema, and urinary frequency for the past couple of days. Pt reports he noticed discoloration in his feet a couple of days ago. He additionally notes feet pain. Denies trauma or injury to feet. Pt states he has been urinating very frequently every 10-20 minutes. Denies dysuria, hematuria. Denies chest pain, nausea, vomiting, headache, fever, chills, fecal or bowel dysfunction, saddle anesthesia.. Son reports pt lives at home and only gets up from bed to feed his dog in the morning and eat breakfast. Pt then stays in bed and does not leave his house and does not walk a lot, per son. PMHx: chronic back pain, chronic hip pain, pacemaker, iliac stents bilaterally. Pt had stents placed in [facility] by Dr. Iqbal in 2017. Pt's maintenance painter apprentice is Dr. Hussein. Per son, Dr. Hussein recommended against surgery for back and hip due to his "bad heart." - History Of Current Complaint Chief Complaint: EDGeneral Time Seen by Provider: 09/07/18 17:00 Hx Obtained From: Patient, Family/Process Engineering Intern - Son, Nnamdi Onset/Duration: Lasting Days - 2, Still Present Timing: Days Severity Currently: Moderate Location: Pain At: - feet Aggravating Factor(s): nothing Alleviating Factor(s): nothing Associated Signs And Symptoms: Positive: SOB, Edema - in LE, Other - POS: feet pain, urinary frequency.. Negative: Headache, Chest Pain, Nausea, Vomiting, Dysuria, Fever - Allergies/Home Medications Allergies/Adverse Reactions: Allergies Allergy/AdvReac Type Severity Reaction Status Date / Time Beta-Blockers Allergy Unknown See Comment Verified 09/07/18 16:40 (Beta-Adrenergic Bloc tramadol Allergy Unknown Unknown Verified 09/07/18 16:40 Reaction Details Sulfa (Sulfonamide Allergy Unknown Verified 09/07/18 16:40 Antibiotics) Reaction Details sertraline AdvReac Mild Diarrhea Verified 09/07/18 16:40 Home Medications: Home Medications Amlodipine Besylate [Amlodipine 2.5 mg tab] 2.5 mg PO BID 09/07/18 [History Confirmed 09/07/18] PMH/Surg Hx/FS Hx/Imm Hx Endocrine/Hematology History: Reports: Hx Anticoagulant Therapy - pt takes plavix Denies: Hx Diabetes, Hx Thyroid Disease Cardiovascular History: Reports: Hx Angina, Hx Angioplasty, Hx Atrial Fibrillation, Hx Coronary Artery Disease, Hx Hypercholesterolemia, Hx Hypertension, Hx Myocardial Infarction, Hx Pacemaker/ICD, 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 Denies: Hx Congestive Heart Failure, Other Cardiovascular Problems/Disorders Respiratory History: Reports: Hx Pneumonia, Other Respiratory Problems/ Disorders - 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 Denies: Hx Asthma, Hx Chronic Obstructive Pulmonary Disease (COPD), Hx Lung Cancer GI History: Reports: Hx Gastroesophageal Reflux Disease, Other GI Disorders - Intestial burst & repair Denies: Hx Gastrointestinal Bleed, Hx Ulcer History: Denies: Hx Dialysis, Hx Renal Disease Musculoskeletal History: Reports: Hx Arthritis - LEFT HIP, Hx Rheumatoid Arthritis, Hx Back Problems - LS fxs; chronic LBP., Other Musculoskeletal History - chronic low back pain Sensory History: Reports: Hx Cataracts - BILAT., Hx Contacts or Glasses, Hx Hearing Aid - right ear Opthamlomology History: Reports: Hx Cataracts - BILAT., Hx Contacts or Glasses Neurological History: Denies: Hx Dementia, Hx Migraine, Hx Seizures, Hx Transient Ischemic Attacks (TIA) Psychiatric History: Reports: Hx Depression Denies: Hx Panic Disorder - Surgical History Surgery Procedure, Year, and Place: cardiac stent,angioplasty, RIGHT HIP REPLACEMENT, COLON RESECTION, HERNIA;pacer/defib January 2013, bilateral ILIAC STENT 01/2018 Hx Anesthesia Reactions: No Infectious Disease History: No Infectious Disease History: Denies: Hx Clostridium Difficile, Hx Hepatitis, Hx Human Immunodeficiency Virus (HIV), Hx of Known/Suspected MRSA, Hx Shingles, Hx Tuberculosis, Traveled Outside the [place] in Last 30 Days - Family History Known Family History: Positive: Cardiac Disease - CAD, Hypertension, Other - HLD - Social History Alcohol Use: Rare Alcohol Amount: 2-3 SHOTS A WEEK Hx Substance Use: No Substance Use Type: Reports: None Hx Tobacco Use: Yes Smoking Status (MU): Light Every Day Tobacco Smoker Type: Cigars Amount Used/How Often: Less then 1 per day Length of Time of Smoking/Using Tobacco: 30 yrs Have You Smoked in the Last Year: Yes Review of Systems Negative: Fever, Chills Negative: Chest Pain Positive: Shortness Of Breath Negative: Vomiting, Nausea Positive: frequency. Negative: dysuria, hematuria, incontinence Musculoskeletal: Other - POS: pain in feet Positive: Edema - in bilateral feet Neurological: Other - NEG: saddle anesthesia Negative: Headache All Other Systems Reviewed And Are Negative: Yes Physical Exam - Summary Physical Exam Summary: VITAL SIGNS: Reviewed. GENERAL: Patient is a well-developed and nourished male who is lying comfortable in the stretcher. Patient is not in any acute respiratory distress. HEAD AND FACE: No signs of trauma. No ecchymosis, hematomas or skull depressions. No sinus tenderness. EYES: PERRLA, EOMI x 2, No injected conjunctiva, no nystagmus. EARS: Hearing grossly intact. Ear canals and tympanic membranes are within normal limits. MOUTH: Oropharynx within normal limits. NECK: Supple, trachea is midline, no adenopathy, no JVD, no carotid bruit, no c- spine tenderness, neck with full ROM. CHEST: Symmetric, no tenderness at palpation LUNGS: Clear to auscultation bilaterally. No wheezing or crackles. CVS: Regular rate and rhythm, S1 and S2 present, no murmurs or gallops appreciated. ABDOMEN: Soft, non-tender. No signs of distention. No rebound, no guarding, and no masses palpated. Bowel sounds are normal. EXTREMITIES: FROM in all major joints, no cyanosis or clubbing. Bilateral lower extremity edema. Faint pedal pulses bilaterally. NEURO: Alert and oriented x 3. No acute neurological deficits. Speech is normal and follows commands. SKIN: Dry and warm. Bruising in left foot, but pt denies trauma. GCS: 15 Triage Information Reviewed: Yes Vital Signs On Initial Exam: Initial Vitals Temp Pulse Resp BP Pulse Ox 97.6 F 78 18 166/84 97 09/07/18 12:47 09/07/18 12:47 09/07/18 12:47 09/07/18 12:47 09/07/18 12:47 Vital Signs Reviewed: Yes Diagnostics - Vital Signs Vital Signs Temp Pulse Resp BP Pulse Ox 09/07/18 16:18 75 16 193/103 98 09/07/18 16:00 79 22 99 09/07/18 15:49 70 20 183/90 97 09/07/18 15:48 68 24 98 09/07/18 14:39 98.1 F 58 16 159/74 100 09/07/18 12:47 97.6 F 78 18 166/84 97 - Laboratory Result Diagrams: 09/07/18 17:18 09/07/18 17:18 Lab Statement: Any lab studies that have been ordered have been reviewed, and results considered in the medical decision making process. - Radiology Chest XR Radiology Interpretation Completed By: Radiologist Summary of Radiographic Findings: IMPRESSION: No radiographic evidence of acute cardiopulmonary disease. Dr. Alegria has reviewed this report. - EKG 17:39 Cardiac Rate: NL - at 71 bpm EKG Rhythm: Atrial Flutter Ectopy: PVCs - multiple EKG Comparison: No Significant Change - similar to prior EKG on 02/12/17 Summary of EKG Findings: Atrial flutter at 71 bpm. Re-Evaluation - Re-Evaluation First Eval Re-Evaluation Time: 18:06 Comment: Pt had two rails up and had the call walsh, when he slipped off the end of the bed. Pt had a witnessed fall by the staff. Dr. Alegria immediately at bedside. Second Eval Re-Evaluation Time: 18:08 Comment: On re-examination pt has lower back pain radiating to his left lower extremity. Complex Multi-Symp Course/Dx Assessment/Plan: This pt is an 88 y/o male, accompanied by his son Nnamdi, presenting to [facility] for SOB, lower extremity edema, and urinary frequency for the past couple of days. Pt reports he noticed discoloration in his feet a couple of days ago. He additionally notes feet pain. Denies trauma or injury to feet. Pt states he has been urinating very frequently every 10-20 minutes. Denies dysuria, hematuria. Denies chest pain, nausea, vomiting, headache, fever , chills, fecal or bowel dysfunction, saddle anesthesia.. Son reports pt lives at home and only gets up from bed to feed his dog in the morning and eat breakfast. Pt then stays in bed and does not leave his house and does not walk a lot, per son. PMHx: chronic back pain, chronic hip pain, pacemaker, iliac stents bilaterally. Pt had stents placed in [facility] by Dr. Iqbal in 2017. Pt's maintenance painter apprentice is Dr. Hussein. Per son, Dr. Hussein recommended against surgery for back and hip due to his "bad heart.". Blood work without any significant abnormality except for glucose of 113, total bili is 1.1 and BNP is more than 1300. Urinalysis is negative for UTI. Chest x-ray impression : No radiographic evidence of acute cuddy pulmonary disease. In the ED course and the patient was given hydralazine for hypertension, she he was given Zofran and morphine for the back pain. While the patient was waiting for further evaluation I was called by the nurse stating that the patient sustained an accidental fall. Both rails from the bed were elevated, he had the call walsh at reach and his son was in the room with him. However, the patient chose to slide down the end of the bed and he fell. He reports that he just wanted to stretch his legs. However he did not call for help. Initially, the bed was low positioned, both railings of the bed were up and the call walsh was at reach which were used for fall precautions. I examined the patient and he doesnt have any new complaints however because of the fall apparently the patient hit his head and I did order a head CT, C-spine, Lumbar spine CT and T spine CT. At this point the patient also was given Lasix for this CHF exacerbation. Head CT, C spine CT, L spine CT, and T spine CT are still pending. Dr. Flores will follow up the test results. I discussed my physical exam, findings and test results with Dr. Casey from the hospitalist services who accepted the patient for admission. - Diagnoses Provider Diagnoses: CHF exacerbation, Uncontrolled hypertension, Chronic back pain, Bilateral leg edema - Physician Notifications Discussed Care Of Patient With: Reza Casey - hospitalist Time Discussed With Above Provider: 18:53 Instructed by Provider To: Admit As Inpatient Discharge - Sign-Out/Discharge Documenting (check all that apply): Patient Departure - [place] [facility] Sign-Out Patient Signing out patient TO: Chan Flores - pending CTs - Discharge Plan Condition: Stable Disposition: ADMITTED TO [facility] Referrals: Trino Moreau MD [Primary Care Provider] - - Billing Disposition and Condition Condition: STABLE Disposition: Admitted to [facility] - Attestation Statements Document Initiated by Scribe: Yes Documenting Scribe: Sarah Vega Provider For Whom Scribe is Documenting (Include Credential): Trino Alegria MD Scribe Attestation: I, Sarah Vega, scribed for Trino Alegria MD on 09/07/18 at 1910. Scribe Documentation Reviewed: Yes Provider Attestation: The documentation as recorded by the scribe, Sarah Vega accurately reflects the service I personally performed and the decisions made by me, Trino Alegria MD Status of Scribe Document: Viewed
[2018-09-07] MEDS ORDERED: Labetalol IV* 5 MG/ML 20 ML VIAL IV PUSH ONE (17:12)
[2018-09-07] MEDS ORDERED: hydrALAZINE IV* 20 MG/ML VIAL IV SLOW PU ONE (17:23)
[2018-09-07 17:27] LABS: ABS Basophils 0 10^3/ul (0-0.2); ABS Eosinophils 0 10^3/ul (0-0.6); ABS Lymphocytes 1.2 10^3/ul (1.0-4.8); ABS Monocytes 0.5 10^3/ul (0-0.8); ABS Neutrophils 4.1 10^3/ul (1.5-7.7); ABS Nucleated RBC 0 10^3/ul; Eosinophil % 0.8 %; Hematocrit 42 % (42-52); Hemoglobin 13.7 g/dl (14.0-18.0); Lymphocyte % 20.8 %; Mean Corpuscular HGB Conc 33 g/dl (31-36); Mean Corpuscular Hemoglobin 29 pg (27-31); Mean Corpuscular Volume 89 fL (80-94); Mean Platelet Volume 7.5 fL (7.4-10.4); Nucleated Red Blood Cells % 0.1; Platelet Count 221 10^3/ul (150-450); Red Blood Count 4.67 10^6/ul (4.00-5.40); Red Cell Distribution Width 17 % (10.5-15); White Blood Count 5.9 10^3/ul (3.5-10.8)
[2018-09-07 17:33] LABS: Urine Appearance Clear; Urine Bacteria Absent (Absent); Urine Bilirubin Negative (Negative); Urine Blood 2+ (Negative); Urine Color Yellow; Urine Glucose Negative (Negative); Urine Ketones 1+ (Negative); Urine Nitrite Negative (Negative); Urine Protein 1+(30 mg/dL) (Negative); Urine Red Blood Cell 3+(>10/hpf) (Absent); Urine Specific Gravity 1.012 (1.010-1.030); Urine Urobilinogen Negative (Negative); Urine White Blood Cell Absent (Absent)
[2018-09-07 17:45] LABS: Albumin 3.8 g/dL (3.2-5.2); Albumin/Globulin Ratio 1.2 (1-3); BUN/Creatinine Ratio 18.8 (8-20); C Reactive Protein 5.7 mg/L (<8.01); Calcium 9.4 mg/dL (8.6-10.3); EGFR Non-African American 85.5 (>60); Globulin 3.3 g/dL (2-4); Potassium 3.8 mmol/L (3.5-5.0); Total Bilirubin 1.1 mg/dL (0.2-1.0); Total Protein 7.1 g/dL (6.4-8.9)
[2018-09-07] MEDS ORDERED: Morphine VIAL* 4 MG/ML VIAL (1 ml vial) IV ONE (18:07)
[2018-09-07] MEDS ORDERED: Ondansetron INJ* 2 MG/ML VIAL IV ONE (18:07)
--- NOTE | 2018-09-07 19:16 | ED ---
Progress - Progress Note Progress Note: Patient was signed out from Dr. Alegria to Dr. Flores at shift change pending CT results. The patient has already been admitted to Dr. Casey before shift change. BRAIN CT IMPRESSION: 1. No acute intracranial abnormality. 2. No change from the comparison study. CERVICAL SPINE CT IMPRESSION: 1. Multilevel degenerative disc and joint disease. 2. No acute fracture, subluxation, or aggressive osseous lesion. LUMBAR SPINE CT IMPRESSION: 1. 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 2. No acute fracture, subluxation, or aggressive osseous lesion. 3. No change from the comparison study in the appearance of the lumbosacral spine. THORACIC SPINE CT IMPRESSION: 1. Diffuse degenerative changes. 2. No acute fracture, subluxation, or aggressive osseous lesion. ED PHYSICIAN HAS REVIEWED THESE IMAGING REPORTS Re-Evaluation - Re-Evaluation First Eval Re-Evaluation Time: 18:06 Comment: Pt had two rails up and had the call walsh, when he slipped off the end of the bed. Pt had a witnessed fall by the staff. Dr. Alegria immediately at bedside. Second Eval Re-Evaluation Time: 18:08 Comment: On re-examination pt has lower back pain radiating to his left lower extremity. Course/Dx - Course Course Of Treatment: Patient was signed out from Dr. Alegria to Dr. Flores at shift change pending CT results. The patient has already been admitted to Dr. Casey before shift change. BRAIN CT IMPRESSION: 1. No acute intracranial abnormality. 2. No change from the comparison study. CERVICAL SPINE CT IMPRESSION: 1. Multilevel degenerative disc and joint disease. 2. No acute fracture, subluxation, or aggressive osseous lesion. LUMBAR SPINE CT IMPRESSION : 1. 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 2. No acute fracture, subluxation, or aggressive osseous lesion. 3. No change from the comparison study in the appearance of the lumbosacral. spine. THORACIC SPINE CT IMPRESSION: 1. Diffuse degenerative changes. 2. No acute fracture, subluxation, or aggressive osseous lesion. The patient has been admitted to Dr. Casey. - Diagnoses Provider Diagnoses: CHF exacerbation, Uncontrolled hypertension, Chronic back pain, Bilateral leg edema - Provider Notifications Discussed Care Of Patient With: Reza Casey Time Discussed With Above Provider: 18:53 Instructed by Provider To: Admit As Inpatient Discharge - Sign-Out/Discharge Documenting (check all that apply): Patient Departure - ADMIT, Receiving Sign- Out Receiving patient FROM: Trino Alegria - Discharge Plan Condition: Stable Disposition: ADMITTED TO [facility] - Billing Disposition and Condition Condition: STABLE Disposition: Admitted to [facility] - Attestation Statements Document Initiated by Scribe: Yes Documenting Scribe: Elian Hdz Provider For Whom Lisetteibpatricia is Documenting (Include Credential): Chan Flores MD Scribe Attestation: Elian Swain, scribed for Chan Flores MD on 09/08/18 at 0657. Scribe Documentation Reviewed: Yes Provider Attestation: The documentation as recorded by the Elian garcia accurately reflects the service I personally performed and the decisions made by Chan tse MD Status of Scribe Document: Viewed
[2018-09-07] MEDS ORDERED: Acetaminophen TAB* 325 MG PO PRN (21:29)
[2018-09-07] MEDS ORDERED: Albuterol 2.5 MG/3 ML NEB.SOL* (0.083%) INH PRN (21:29)
[2018-09-07] MEDS ORDERED: HYDROcodone/ACETAMIN 5-325 MG* 1 TAB PO PRN ×2 (21:31→22:30)
[2018-09-07] MEDS: Atorvastatin* 20 MG TAB PO SCH (22:48)
[2018-09-07] MEDS: amLODIPine TAB* 5 MG PO SCH (22:48)
[2018-09-07] MEDS: Apixaban* 5 MG TAB PO SCH (22:48)
[2018-09-07] MEDS: FLUoxetine CAP* 20 MG PO SCH (22:48)
--- NOTE | 2018-09-08 02:43 | HP ---
CC: Dr. Moreau; Dr. Hussein * HISTORY AND PHYSICAL: DATE OF ADMISSION: 09/07/18 PROVIDER: Sonia Garcias NP PRIMARY CARE PROVIDER: Dr. Moreau. ATTENDING PROVIDER: * (DICTATED BY SONIA GARCIAS NP) CHIEF COMPLAINT: 1. Burning pain to the left leg. 2. Left foot pain. 3. Hypertension. HISTORY OF PRESENT ILLNESS: Mr. Best is an 88-year-old male with a history of hypertension, coronary artery disease, hyperlipidemia, chronic low back pain radiating down to his left hip and down his left leg, who presented to the emergency room complaining of burning in his left leg, left foot pain, and hypertension. The patient reports that this is a burning pain in the leg, that he has had this in the past. He will have the burning in the left leg, which will last 2 to 3 days and then it will resolve for a few months and then it comes back. The patient's son reports that recently he had his pacemaker settings adjusted approximately 2 months ago, and since then, he has had difficulty with hypertension. Today, he presented to the emergency room, and his blood pressure was ranging 169 to 178 over 99 to 109. The son reports that the patient also recently had his Norvasc increased to 2.5 mg p.o. twice daily, but is concerned due to his continued hypertension. The patient and son report that he also, approximately on 08/21/18, had his pacemaker readjusted back to 60 from 65, but has seen no change in the blood pressure since the adjustment. The patient denies any shortness of breath, denies any cough or congestion, denies any hemoptysis. He does report some mild swelling to the ankles, which has improved since being in the emergency room. He denies any nausea, vomiting , diarrhea, or abdominal pain. He denies any hematuria. He does report urinary frequency. Denies any weakness or sensory loss, denies any visual complaints or dysphagia. He does complain of purple discoloration to the left foot and mild tenderness with palpation to the lateral aspect of the left foot. Denies any psychosis or anxiety due to his hypertension. While in the emergency room, the patient had routine lab work drawn. He had a CT of the C-spine, L-spine, T-spine, and a CT of the brain. CT of the brain showed no acute changes. CT C-spine, T-spine, and L-spine showed chronic degenerative disk changes with disk space narrowing. No acute fractures or subluxation. The patient was also found to have a BNP greater than 1300. Therefore, due to the concern of elevated BNP, we were asked to see and evaluate the patient for admission. PAST MEDICAL HISTORY: Significant for: 1. Vertebral fractures. 2. Coronary artery disease. 3. Hypertension. 4. Hyperlipidemia. 5. Chronic low back pain and left hip pain. 6. Diverticulosis. PAST SURGICAL HISTORY: 1. Pacemaker. 2. Right hip replacement. 3. Bilateral cataracts. 4. Bowel resection with mesh. MEDICATIONS: Home medications include: 1. Senna tabs, 2 tabs p.o. q.h.s. p.r.n. 2. Multivitamin 1 tablet p.o. daily. 3. Fentanyl patch 37.5 mcg topically q.72 hours, due to be changed tomorrow, . 4. Tylenol 650 mg p.o. q.4 hours as needed for pain. 5. Ramipril 5 mg p.o. daily. 6. Nitroglycerin 0.4 sublingual q.5 minutes p.r.n. chest pain. 7. Prozac 20 mg p.o. daily. 8. Lipitor 20 mg p.o. daily. 9. Amlodipine 2.5 mg p.o. b.i.d. 10. Magnesium oxide 400 mg p.o. daily. 11. Eliquis 5 mg p.o. daily. 12. Hydrocodone 5/325 one tablet daily at h.s. ALLERGIES: BETA-BLOCKERS, TRAMADOL, and SERTRALINE. FAMILY HISTORY: Mother at the age of 53 to what is believed a brain aneurysm. Dad at the age of 73, unknown. No reported history of diabetes or cancer within the family. SOCIAL HISTORY: The patient chews cigars on an occasional basis. He is a former smoker of 2 packs per day for 15 years. He quit smoking approximately 40 years ago. He does rarely drink some alcohol. 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 He is . He has 2 children. Surrogate decision maker in the event he is unable to make his own decisions is his , Izzy, and his son, Nnamdi. He is a full code. REVIEW OF SYSTEMS: The patient denies any fever, chills, anorexia. Denies any cough, congestion, hemoptysis, or shortness of breath. He does report mild edema to bilateral ankles. He denies any nausea, vomiting, diarrhea, or abdominal pain. He does report urinary frequency, denies any gross hematuria or burning with urination. Denies any focal weakness or sensory loss. Denies any visual complaints. Denies any dysphagia, arthralgias or myalgias. Denies any rashes or open sores. He does have ecchymosis noted. He does complain of purple discoloration to the left foot and tenderness to the left lateral foot. Denies any injury. Denies any psychosis or anxiety. PHYSICAL EXAMINATION GENERAL: At this time, Mr. Best is an 88-year-old male who appears well nourished, well developed, sitting on a stretcher in the emergency room. He does not appear to be in any acute distress. He is alert and oriented x3. VITAL SIGNS: Blood pressure 178/109, heart rate 77, respirations 16, O2 saturation 99%, temperature was 97.6. HEENT: Head is atraumatic and normocephalic. Eyes: EOMs are intact. Sclerae are anicteric and not pale. Oral mucosa appears to be moist. No oropharyngeal erythema. NECK: Supple. There is no C-spine tenderness to palpation. LUNGS: Diminished bilaterally. No wheezes, rales, or rhonchi. CARDIAC: S1, S2. Regular rate and rhythm. ABDOMEN: Soft and nontender. Bowel sounds are present x4. EXTREMITIES: Pedal pulses are +2 bilaterally. His left foot is ecchymotic. His all 5 toes are ecchymotic. Does have mild tenderness to palpation to the left lateral foot. There is a small amount of swelling noted to the bilateral ankles. SKIN: Intact. There are no rashes. NEUROLOGIC: He is awake, alert, and oriented x3. Speech is clear. Strength is 5/5 to all 4 extremities. There are no gross focal deficits. DIAGNOSTIC STUDIES AND LABORATORY DATA: WBCs are 5.9, RBCs 4.6, hemoglobin 13.7, hematocrit was 42, platelet count was 221. APTT was 37.8. Sodium 138, potassium 3.8, chloride 105, carbon dioxide was 25, anion gap was 8, BUN was 16 , creatinine 0.85, lactic acid was 1.1, glucose was 113, calcium 9.4. ASTs were 20, ALTs were 10. CK was 69, troponin 0.01, BNP was greater than 1300. Urine color was yellow, clear, pH was 7, specific gravity was 1.012, urine protein was 1+, urine ketones were 1+, blood was 2+. Urine nitrites, urine bilirubin, urine leukocyte esterase were all negative. Urine wbc's were absent, rbc's were 3+, and bacteria was absent. Chest x-ray, no radiographic evidence of acute cardiopulmonary disease. He had a CT of the brain. No acute intracranial abnormality. He had a CT of the cervical spine, multilevel degenerative disk disease and joint disease. No acute fracture, subluxation, or aggressive osseous lesion. He had a CT of the lumbar spine. 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 No acute fracture, subluxation, or aggressive osseous lesion. No change from comparison study. He had a CT of the thorax. Diffuse degenerative changes. No acute fracture, subluxation, or aggressive osseous lesions. ASSESSMENT AND PLAN: Mr. Best is an 88-year-old male with past medical history significant for hypertension, hyperlipidemia, coronary artery disease with pacemaker placement, who presented to the emergency room with complaints of left foot pain, hypertension, and burning in the left leg which appears to be chronic. He will be admitted under observation for: 1. Hypertension. The patient was hypertensive on arrival to the emergency room with blood pressures as high as 193/103. I will resume his previous home medications and continue his amlodipine at 2.5 mg b.i.d. We will continue his ramipril 5 mg p.o. daily. I suspect that his hypertension can be related to underlying pain in his left leg and left foot, could be exacerbating his hypertension. We will monitor him on telemetry overnight, monitor his blood pressure, and adjust his blood pressure medications as needed. 2. Coronary artery disease. Will continue him on Lipitor, ramipril, and Eliquis as previously prescribed. 3. Chronic pain to lower back and left leg. Continue on fentanyl patch at 37.5 mcg q.72 hours. He can have hydrocodone 1 tablet every 6 hours as needed for severe pain. 4. Hyperlipidemia. Will continue on Lipitor 20 mg p.o. daily. 5. Atrial fibrillation. Will continue on Eliquis as previously prescribed. 6. DVT prophylaxis. His scores are 4, giving him high risk. Will continue on Eliquis, will act as his DVT prophylaxis. 7. Code status. He is a full code. 8. Fluids, electrolytes, and nutrition. He will be placed on heart-healthy, decaf- okay diet. TIME SPENT: Time spent on this admission was 60 minutes, greater than half that time was spent with the patient obtaining my history and physical; the rest of the time was spent performing physical exam and going over my plan of care. I have discussed this with my attending, Dr. Ivy Lara, and she is agreement with my plan. SONIA GARCIAS, GEORGE [id number]/[facility] #: [id number] SHAHID
[2018-09-08 06:19] LABS: ABS Basophils 0.1 10^3/ul (0-0.2); ABS Eosinophils 0.2 10^3/ul (0-0.6); ABS Lymphocytes 1.4 10^3/ul (1.0-4.8); ABS Monocytes 0.8 10^3/ul (0-0.8); ABS Neutrophils 3.2 10^3/ul (1.5-7.7); ABS Nucleated RBC 0 10^3/ul; Hematocrit 39 % (42-52); Hemoglobin 13.1 g/dl (14.0-18.0); Lymphocyte % 25.4 %; Mean Corpuscular HGB Conc 33 g/dl (31-36); Mean Corpuscular Hemoglobin 30 pg (27-31); Mean Corpuscular Volume 89 fL (80-94); Mean Platelet Volume 7.1 fL (7.4-10.4); Nucleated Red Blood Cells % 0.1; Platelet Count 209 10^3/ul (150-450); Red Blood Count 4.41 10^6/ul (4.00-5.40); Red Cell Distribution Width 17 % (10.5-15); White Blood Count 5.7 10^3/ul (3.5-10.8)
[2018-09-08 06:38] LABS: BUN/Creatinine Ratio 17.9 (8-20); Calcium 8.9 mg/dL (8.6-10.3); EGFR Non-African American 86.6 (>60); Potassium 3.4 mmol/L (3.5-5.0)
[2018-09-08] MEDS ORDERED: fentaNYL PATCH 50 MCG/HR TRANSDERM SCH (08:00)
[2018-09-08] MEDS ORDERED: fentaNYL PATCH 25 MCG/HR TRANSDERM SCH ×3 (08:00→09:54)
[2018-09-08] MEDS ORDERED: Potassium Chlor TAB* 20 MEQ TAB.ER PO ONE ×2 (08:35→16:00)
[2018-09-08 08:52] LABS: Magnesium 1.5 mg/dL (1.9-2.7)
[2018-09-08] MEDS ORDERED: fentaNYL PATCH 12 MCG/HR TRANSDERM SCH (09:00)
[2018-09-08] MEDS: Apixaban* 5 MG TAB PO SCH ×2 (09:45→20:20)
[2018-09-08] MEDS: amLODIPine TAB* 5 MG PO SCH ×2 (09:46→20:20)
[2018-09-08] MEDS: Multivitamins/Minerals TAB PO SCH (09:46)
[2018-09-08] MEDS: Ramipril CAP* 5 MG PO SCH (09:46)
[2018-09-08] MEDS: Magnesium Oxide TAB* 400 MG PO SCH (09:47)
[2018-09-08] MEDS: FLUoxetine CAP* 20 MG PO SCH ×2 (09:47→20:20)
[2018-09-08] MEDS: Clopidogrel TAB* 75 MG PO SCH (09:47)
--- NOTE | 2018-09-08 10:22 | PN ---
Subjective Date of Service: 09/08/18 Interval History: Patient seen and examined at bedside. Denies fever, chills, shortness of breath , chest discomfort, N/V/D, or pain. Tele: Paced, rate 60-80's Family History: Unchanged from Admission Social History: Unchanged from Admission Past Medical History: Unchanged from Admission Objective Active Medications: Acetaminophen (Tylenol Tab*) 650 mg PO Q4H PRN Reason: FEVER/PAIN Hydrocodone Bitart/Acetaminophen ([place] 5-325 Tab*) 1 tab PO Q6H PRN Reason: PAIN Albuterol (Ventolin 2.5 Mg/3 Ml Neb.Blanca*) 2.5 mg INH [id number] AWAKE PRN Reason: sob/wheezing Amlodipine Besylate (Norvasc Tab*) 2.5 mg PO BID KATELIN Apixaban (Eliquis*) 5 mg PO BID KATELIN Atorvastatin Calcium (Lipitor*) 20 mg PO BEDTIME KATELIN Clopidogrel Bisulfate (Plavix Tab*) 75 mg PO DAILY KATELIN Fentanyl (Duragesic Patch 12 Mcg/Hr *) 12 mcg TRANSDERM Q72HR KATELIN Fentanyl (Duragesic Patch 25 Mcg/Hr*) 25 mcg TRANSDERM Q72H KATELIN Fluoxetine HCl (Prozac Cap*) 20 mg PO BID KATELIN Magnesium Oxide (Magox 400 Tab*) 400 mg PO DAILY KATELIN Multivitamins/Minerals (Theragran/Minerals Tab*) 1 tab PO DAILY KATELIN Ramipril (Altace Cap*) 5 mg PO DAILY [facility] Vital Signs - 8 hr 09/08/18 09/08/18 09/08/18 03:03 03:23 08:00 Temperature 97.1 F Pulse Rate 59 Respiratory 16 18 16 Rate Blood Pressure 129/69 (mmHg) O2 Sat by Pulse 98 Oximetry 09/08/18 09/08/18 09/08/18 09:47 09:49 10:02 Temperature 97.6 F Pulse Rate 63 Respiratory 16 16 16 Rate Blood Pressure 137/68 (mmHg) O2 Sat by Pulse 94 Oximetry Oxygen Devices in Use Now: None Appearance: NAD, laying in bed Ears/Nose/Mouth/Throat: Mucous Membranes Moist Respiratory: Symmetrical Chest Expansion and Respiratory Effort, Clear to Auscultation - , diminished Cardiovascular: NL Sounds; No Murmurs; No JVD, RRR Abdominal: NL Sounds; No Tenderness; No Distention Extremities: No Edema Skin: - - Ecchymosis to left dorsal foot and toes Neurological: Alert and Oriented x 3, NL Muscle Strength and Tone, - Nutrition: Taking PO's Result Diagrams: 09/08/18 06:09 09/08/18 06:09 Assess/Plan/Problems-Billing Assessment: Mr. Best is an 88 yo male with PMH significant vertebral fractures, CAD, HTN, HLD, chronic low back pain, and diverticulosis who presented to the ED with complaints of left foot pain, HTN, and burning in the left leg. - Patient Problems (1) HTN (hypertension) Code(s): I10 - ESSENTIAL (PRIMARY) HYPERTENSION SNOMED Code(s): 92320861 Comment: - Normotensive today, was hypertensive on admission - Suspect pain was contributing to hypertension - Continue ramipril and amlodipine (2) Chronic low back pain Code(s): M54.5 - LOW BACK PAIN; G89.29 - OTHER CHRONIC PAIN SNOMED Code(s): 571122305 Comment: - With chronic leg pain - Continue Fentanyl patch and [place] PRN for severe pain (3) Electrolyte abnormality Code(s): E87.8 - OTH DISORDERS OF ELECTROLYTE AND FLUID BALANCE, NEC SNOMED Code(s): 909733991 Comment: - Hypokalemia - Will give replacement today - Hhypomagnesemia - Will give repalcement today (4) Coronary artery disease Code(s): I25.10 - ATHSCL HEART DISEASE OF [place] CORONARY ARTERY W/O ANG PCTRS SNOMED Code(s): 60919845 Comment: - Denies chest pain - Continue Eliquis, plavix, lipitor, and ramipril (5) Hyperlipidemia Code(s): E78.5 - HYPERLIPIDEMIA, UNSPECIFIED SNOMED Code(s): 03280784 Comment: - Continue lipitor (6) DVT prophylaxis Code(s): [id number] - SNOMED Code(s): 711569115 Comment: - Continue eliquis (7) Full code status Code(s): Z78.9 - OTHER SPECIFIED HEALTH STATUS SNOMED Code(s): 375885139 Status and Disposition: OBV. Discharge to home when medically stable. PT eval pending.
[2018-09-08] MEDS ORDERED: Magnesium Sulf 4 GM/100 ML IV* 4,000 MG/100 ML BAG IVPB ONE (10:27)
[2018-09-08] MEDS: fentaNYL Patch Check Q Shift 1 NOTE FOLLOW UP SCH (19:07)
[2018-09-08] MEDS: Atorvastatin* 20 MG TAB PO SCH (20:19)
[2018-09-09] MEDS: fentaNYL Patch Check Q Shift 1 NOTE FOLLOW UP SCH (07:11)
[2018-09-09 07:28] LABS: BUN/Creatinine Ratio 23.7 (8-20); Calcium 8.8 mg/dL (8.6-10.3); Magnesium 2.2 mg/dL (1.9-2.7); Potassium 3.9 mmol/L (3.5-5.0)
[2018-09-09] MEDS: FLUoxetine CAP* 20 MG PO SCH (10:29)
[2018-09-09] MEDS: Apixaban* 5 MG TAB PO SCH (10:29)
[2018-09-09] MEDS: Magnesium Oxide TAB* 400 MG PO SCH (10:29)
[2018-09-09] MEDS: Multivitamins/Minerals TAB PO SCH (10:29)
[2018-09-09] MEDS: Ramipril CAP* 5 MG PO SCH (10:29)
[2018-09-09] MEDS: Clopidogrel TAB* 75 MG PO SCH (10:29)
[2018-09-09] MEDS: amLODIPine TAB* 5 MG PO SCH (10:29)
--- NOTE | 2018-09-09 14:57 | PN ---
Subjective Date of Service: 09/09/18 Interval History: Patient seen and examined at bedside. Denies fever, chills, shortness of breath , chest discomfort, N/V/D. Left foot pain has resolved. Reported left hip pain this morning, but that has since resolved. He has chronic left hip pain. His son feels that he is ready for discharge to home today. Tele: Paced, rate 60's Family History: Unchanged from Admission Social History: Unchanged from Admission Past Medical History: Unchanged from Admission Objective Active Medications: Acetaminophen (Tylenol Tab*) 650 mg PO Q4H PRN Reason: FEVER/PAIN Hydrocodone Bitart/Acetaminophen ([place] 5-325 Tab*) 1 tab PO Q6H PRN Reason: PAIN Albuterol (Ventolin 2.5 Mg/3 Ml Neb.Blanca*) 2.5 mg INH [id number] AWAKE PRN Reason: sob/wheezing Amlodipine Besylate (Norvasc Tab*) 2.5 mg PO BID KATELIN Apixaban (Eliquis*) 5 mg PO BID [facility] Atorvastatin Calcium (Lipitor*) 20 mg PO BEDTIME KATELIN Clopidogrel Bisulfate (Plavix Tab*) 75 mg PO DAILY [facility] Fentanyl (Duragesic Patch 12 Mcg/Hr *) 12 mcg TRANSDERM Q72HR KATELIN Fentanyl (Duragesic Patch 25 Mcg/Hr*) 25 mcg TRANSDERM Q72H KATEL[place] Fluoxetine HCl (Prozac Cap*) 20 mg PO BID KATELIN Magnesium Oxide (Magox 400 Tab*) 400 mg PO DAILY [facility] Multivitamins/Minerals (Theragran/Minerals Tab*) 1 tab PO DAILY [facility] Pharmacy Profile Note (Fentanyl Patch Check Q Shift) 1 note FOLLOW UP 0700, 1900 [facility] Ramipril (Altace Cap*) 5 mg PO DAILY [facility] Vital Signs - 8 hr 09/09/18 09/09/18 09/09/18 07:32 08:00 10:54 Temperature 97.8 F 98.2 F Pulse Rate 59 Respiratory 16 16 16 Rate Blood Pressure 126/58 134/63 (mmHg) O2 Sat by Pulse 99 99 Oximetry Oxygen Devices in Use Now: None Appearance: NAD, laying in bed Ears/Nose/Mouth/Throat: Mucous Membranes Moist Respiratory: Symmetrical Chest Expansion and Respiratory Effort, Clear to Auscultation Cardiovascular: NL Sounds; No Murmurs; No JVD, RRR Abdominal: NL Sounds; No Tenderness; No Distention Extremities: No Edema Skin: No Rash or Ulcers, - - Ecchymosis to the dorsal left foot and toes. Neurological: Alert and Oriented x 3, NL Muscle Strength and Tone Lines/Tubes/Other Access: Clean, Dry and Intact Peripheral IV - site benign Nutrition: Taking PO's Result Diagrams: 09/08/18 06:09 09/09/18 06:27 Microbiology and Other Data: Microbiology 09/07/18 17:33 Aerobic Blood Culture - Preliminary Blood Venous No Growth Day 1 Anaerobic Blood Culture - Preliminary No Growth Day 1 09/07/18 17:18 Aerobic Blood Culture - Preliminary Blood Venous No Growth Day 1 Anaerobic Blood Culture - Preliminary No Growth Day 1 Assess/Plan/Problems-Billing Assessment: Mr. Best is an 88 yo male with PMH significant vertebral fractures, CAD, HTN, HLD, chronic low back pain, and diverticulosis who presented to the ED with complaints of left foot pain, HTN, and burning in the left leg. - Patient Problems (1) HTN (hypertension) Code(s): I10 - ESSENTIAL (PRIMARY) HYPERTENSION SNOMED Code(s): 64171869 Comment: - Mostly normotensive, SBP 120-150's - Hypertensive on admission - Suspect pain was contributing to hypertension - Continue ramipril and amlodipine (2) Chronic low back pain Code(s): M54.5 - LOW BACK PAIN; G89.29 - OTHER CHRONIC PAIN SNOMED Code(s): 815044101 Comment: - With chronic leg pain - Continue Fentanyl patch and [place] PRN for severe pain (3) Electrolyte abnormality Code(s): E87.8 - OTH DISORDERS OF ELECTROLYTE AND FLUID BALANCE, NEC SNOMED Code(s): 100052791 Comment: - Hypokalemia: Resolved - Hhypomagnesemia: Resolved (4) Coronary artery disease Code(s): I25.10 - ATHSCL HEART DISEASE OF [place] CORONARY ARTERY W/O ANG PCTRS SNOMED Code(s): 24536354 Comment: - Denies chest pain - Continue Eliquis, plavix, lipitor, and ramipril (5) Hyperlipidemia Code(s): E78.5 - HYPERLIPIDEMIA, UNSPECIFIED SNOMED Code(s): 52395200 Comment: - Continue lipitor (6) DVT prophylaxis Code(s): EUK0084 - SNOMED Code(s): 192657636 Comment: - Continue eliquis (7) Full code status Code(s): Z78.9 - OTHER SPECIFIED HEALTH STATUS SNOMED Code(s): 815091654 Status and Disposition: OBV. Stable for discharge to home today.
[2018-09-09 15:58] VITALS: BP 115/57
--- NOTE | 2018-09-09 22:55 | DS ---
CC: Dr. Trino Moreau; Dr. Ry Hussein * DISCHARGE SUMMARY: DATE OF ADMISSION: 09/07/18 DATE OF DISCHARGE: 09/09/18 ATTENDING PHYSICIAN: Reza Casey MD * (dictated by Katy Sheets NP) PRIMARY CARE PROVIDER: Dr. Trino Moreau. PRIMARY POND TENDER: Dr. Ry Hussein. PRIMARY DIAGNOSES: 1. Hypertension. 2. Left foot trauma, without fractures. 3. Hypokalemia, resolved. 4. Hypomagnesemia, resolved. SECONDARY DIAGNOSES: 1. Coronary artery disease. 2. 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 3. Hyperlipidemia. 4. Atrial fibrillation. STUDIES WHILE IN THE HOSPITAL: 1. Chest x-ray on 09/07/18. Radiologist's impression: No radiographic evidence for acute cardiopulmonary disease. 2. Brain CT on 09/07/18. Radiologist's impression: No acute intracranial abnormality. No change from the comparison study. 3. Cervical spine CT on 09/07/18. Radiologist's impression: Multilevel degenerative disk and joint disease. No acute fracture, subluxation, or aggressive osseous lesion. 4. Lumbar spine CT on 09/07/18. 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 No acute fracture , subluxation, or aggressive osseous lesion. No change from the comparison study in the appearance of the lumbosacral spine. 5. Thoracic spine CT on 09/07/18. Radiologist's impression: Diffuse degenerative changes. No acute fracture, subluxation, or aggressive osseous lesion. 6. Left foot x-ray on 09/07/18. Radiologist's impression: No fracture of the left foot is noted. DISCHARGE MEDICATIONS: New home medication: 1. Acetaminophen 650 mg oral every 4 hours as needed for fever or pain. Continued home medications: 1. Multivitamin 1 tablet oral daily. 2. Plavix 75 mg oral daily. 3. Nitroglycerin 0.4 mg sublingual every 5 minutes as needed for angina. 4. Prozac 20 mg oral daily. 5. Altace 5 mg oral daily. 6. Magnesium oxide 400 mg oral daily. 7. Atorvastatin 20 mg oral daily at bedtime. 8. Apixaban 5 mg oral twice daily. 9. Senna 2 tablets oral twice daily. 10. Fentanyl 37.5 mcg transdermal, change every 72 hours. 11. Hydrocodone/acetaminophen 5/325 mg 1 tablet oral daily as needed for pain. 12. Amlodipine 2.5 mg oral twice daily. HISTORY OF PRESENT ILLNESS/HOSPITAL COURSE: Mr. Best is an 88-year-old male with past medical history significant for hypertension, coronary artery disease , hyperlipidemia, chronic low back pain radiating down to his left hip and leg who presented to the emergency room with complaints of burning in his left leg, left foot pain, and hypertension. The patient reports burning in his leg that he has had in the past. Often, the pain lasts for 2 to 3 days and then resolves for a few months and then comes back again. His son reports he has recently had his pacemaker settings adjusted and has since then been having difficulty with hypertension. Due to his symptoms, he presented to the emergency room for further evaluation. While in the emergency room, he was noted to be hypertensive with blood pressures ranging systolically in the 160s to 170s/90s to 100s. He had recently had his Norvasc increased. Earlier in August, the patient had his pacemaker readjusted to a slightly higher heart rate. He denied any shortness of breath, cough, chest pain, hemoptysis. He reported mild swelling in his ankles that improved during his time in the emergency room. He was reporting urinary frequency. He complained of purplish discoloration of his left foot and mild tenderness with palpation. He had a CT scan of his C-spine, L-spine, T -spine, and brain, all showing no acute changes. The spinal CT showed degenerative disk changes. He was noted to have a BNP of 1300 and the hospitalists were asked to evaluate him. While in the hospital, his hypertension became better controlled on his home medications. It was felt that his hypertension was secondary to his underlying pain. His pain resolved during his stay. He had no signs of heart failure or acute coronary syndrome. He is able to ambulate with physical therapy. Of note , during his stay he was also noted to have hypomagnesemia, hypokalemia. He received replacement and this resolved. He had a left foot ecchymosis that improved during his stay. This is suspected to be secondary to a trauma at home , but there were no signs of fracture on x-ray. He was doing well and felt ready for discharge home. Vital signs are as follows: Temperature 97.4, heart rate 60, respiratory rate 20, O2 sat 97% on room air, blood pressure 115/57. DISCHARGE PLAN: Mr. Best will be discharged to home. Activity as tolerated. He will be on a heart healthy diet. In regards to his hypertension, he is being continued on his ramipril and amlodipine. As far as his pain, he has been continued on his usual fentanyl patch and hydrocodone as needed and was encouraged to take acetaminophen every 4 hours as needed for pain. He has been encouraged to stay ambulatory and not just lie around. I had a discussion with his son who felt comfortable taking him home. He should be seen in followup by his primary care provider, Dr. Moreau. He has been asked to call for a followup appointment. Additionally, follow up with Dr. Hussein as needed. He has been set up with visiting nurse services. He has been asked to return to the emergency room for any chest pain, shortness of breath. This is a summarized report of a complex medical history and hospital stay. For further details, please see the entire medical record. TIME SPENT: Time for this discharge was approximately 60 minutes, greater than half of that was spent with the patient and his son discussing discharge plans and instructions. CONDITION ON DISCHARGE: Improved. KATY JOYCE NP [id number]/[facility] #: [id number] SHAHID
== END 2018-09-09 16:45 | disposition home or self-care (01) ==
LOC: ED 12:44 → MED 21:29
PROVIDERS: ADMIT Internal Medicine; ATTEND Student in an Organized Health Care Education/Training Program
DX: I10 Essential (primary) hypertension (principal); E87.6 Hypokalemia; E83.42 Hypomagnesemia; S99.922A Unspecified injury of left foot, initial encounter; X58.XXXA Exposure to other specified factors, initial encounter; I25.10 Atherosclerotic heart disease of native coronary artery without angina pectoris; G89.29 Other chronic pain; M54.5 Low back pain; M79.605 Pain in left leg; E78.5 Hyperlipidemia, unspecified; I48.91 Unspecified atrial fibrillation; Z79.01 Long term (current) use of anticoagulants; Z79.899 Other long term (current) drug therapy; Z95.0 Presence of cardiac pacemaker; R35.0 Frequency of micturition; M25.552 Pain in left hip; Z96.641 Presence of right artificial hip joint; Z72.0 Tobacco use; Z88.8 Allergy status to other drugs, medicaments and biological substances; R60.9 Edema, unspecified; Z95.5 Presence of coronary angioplasty implant and graft; I25.2 Old myocardial infarction
CPT/HCPCS: 36415; 70450; 71046; 72125; 72128; 72131; 80048; 80053; 81003; 81015; 82550; 82553; 83605; 83735; 83880; 84484; 85025; 85730; 86140; 87040; 93005; 96365; 96375; 99285; 99406; A9270-GY; G0378; G8978-GP-CK; G8979-GP-CJ; J0360; J2270; J2405; J3475

== ENCOUNTER 2019-03-22 15:22 | Emergency (ER) | payer MEDICARE, OTHER ==
[2019-03-22 15:35] VITALS: BP 96/58
== END 2019-03-22 16:46 | disposition left against medical advice (07) ==
LOC: UCEAST 15:22
DX: R68.89 Other general symptoms and signs (principal); Z53.21 Procedure and treatment not carried out due to patient leaving prior to being seen by health care provider

== ENCOUNTER 2019-03-22 16:56 | Emergency (ER) | payer MEDICARE, OTHER | END 2019-03-22 17:13 | disposition left against medical advice (07) | LOC: UCEAST 16:56 | DX: R68.89 Other general symptoms and signs (principal); Z53.21 Procedure and treatment not carried out due to patient leaving prior to being seen by health care provider ==

== ENCOUNTER 2020-06-22 11:42 | Inpatient (IN) ==
[2020-06-22] MEDS ORDERED: HYDROcodone/ACETAMIN 5/325 mg TAB PO ONE (12:30)
[2020-06-22 12:59] LABS: ABS Basophils 0.1 10^3/ul (0-0.2); ABS Lymphocytes 1.4 10^3/ul (1.0-4.8); ABS Monocytes 1.5 10^3/ul (0-0.8); ABS Neutrophils 8.5 10^3/ul (1.5-7.7); Eosinophil % 0.4 %; Hematocrit 38 % (42-52); Hemoglobin 12.6 g/dL (14.0-18.0); Lymphocyte % 12.5 %; Mean Corpuscular HGB Conc 33 g/dL (31-36); Mean Corpuscular Hemoglobin 31 pg (27-31); Mean Corpuscular Volume 94 fL (80-94); Platelet Count 203 10^3/uL (150-450); Red Blood Count 4.05 10^6 /uL (4.18-5.48); Red Cell Distribution Width 16 % (10-15); White Blood Count 11.5 10^3/uL (3.5-10.8)
[2020-06-22 13:10] LABS: INR 2.28 (0.82-1.09)
[2020-06-22 13:14] LABS: ALT 10 U/L (7-52); AST 16 U/L (13-39); Albumin 3.2 g/dL (3.2-5.2); Albumin/Globulin Ratio 0.9 (1-3); Alkaline Phosphatase 70 U/L (34-104); Anion Gap 7 mmol/L (2-11); BUN/Creatinine Ratio 26.8 (8-20); Blood Urea Nitrogen 37 mg/dL (6-24); C Reactive Protein 156.13 mg/L (<8.01); CO2 Carbon Dioxide 25 mmol/L (22-32); Calcium 8.7 mg/dL (8.6-10.3); Chloride 105 mmol/L (101-111); EGFR African American 58.8 (>60); EGFR Non-African American 48.6 (>60); Globulin 3.4 g/dL (2-4); Glucose 156 mg/dL (70-100); Potassium 4.2 mmol/L (3.5-5.0); Sodium 137 mmol/L (135-145); Total Protein 6.6 g/dL (6.4-8.9)
[2020-06-22 14:09] LABS: Troponin I 0.03 ng/mL (<0.03)
[2020-06-22] MEDS ORDERED: Iodixanol (CONTRAST) 320 MG/ML 100 ML SDV IV ONE (15:05)
[2020-06-22 17:20] LABS: Troponin I 0.03 ng/mL (<0.03)
[2020-06-22 20:40] LABS: Troponin I 0.05 ng/mL (<0.03)
[2020-06-22 23:22] LABS: Troponin I 0.06 ng/mL (<0.03)
[2020-06-23 01:36] LABS: Troponin I 0.05 ng/mL (<0.03)
[2020-06-23 05:09] LABS: ABS Eosinophils 0.1 10^3/ul (0-0.6); ABS Lymphocytes 1.6 10^3/ul (1.0-4.8); ABS Monocytes 1.5 10^3/ul (0-0.8); ABS Neutrophils 7.8 10^3/ul (1.5-7.7); Eosinophil % 0.8 %; Hematocrit 39 % (42-52); Hemoglobin 12.2 g/dL (14.0-18.0); Lymphocyte % 14.8 %; Mean Corpuscular HGB Conc 31 g/dL (31-36); Mean Corpuscular Hemoglobin 31 pg (27-31); Mean Corpuscular Volume 99 fL (80-94); Mean Platelet Volume 7.9 fL (7.4-10.4); Nucleated Red Blood Cells % 0.1; Platelet Count 184 10^3/uL (150-450); Red Cell Distribution Width 17 % (10-15); White Blood Count 11.1 10^3/uL (3.5-10.8)
[2020-06-23 05:15] LABS: Anion Gap 10 mmol/L (2-11); BUN/Creatinine Ratio 24.7 (8-20); Blood Urea Nitrogen 39 mg/dL (6-24); C Reactive Protein 189.06 mg/L (<8.01); CO2 Carbon Dioxide 21 mmol/L (22-32); Calcium 8.4 mg/dL (8.6-10.3); Chloride 102 mmol/L (101-111); EGFR African American 50.3 (>60); EGFR Non-African American 41.6 (>60); Glucose 118 mg/dL (70-100); Potassium 4.7 mmol/L (3.5-5.0); Sodium 133 mmol/L (135-145)
[2020-06-23 05:30] LABS: Troponin I 0.06 ng/mL (<0.03)
[2020-06-23] MEDS: Linezolid 600 MG/ 300 ML IVPB SCH ×2 (07:28→18:11)
[2020-06-23] MEDS: Vitamin THERAPEUTIC TAB PO SCH (08:53)
[2020-06-23] MEDS: Nitroglycerin 0.2 mg/hr PATCH (5 mg) TRANSDERM SCH (08:56)
[2020-06-23] MEDS ORDERED: DULoxetine DR 60 mg CAP PO SCH (09:00)
[2020-06-23 15:14] LABS: Urine Appearance Cloudy; Urine Bilirubin Negative (Negative); Urine Blood Negative (Negative); Urine Color Amber; Urine Glucose Negative (Negative); Urine Ketones Negative (Negative); Urine Nitrite Negative (Negative); Urine Protein 1+(30 mg/dL) (Negative); Urine Specific Gravity 1.059 (1.010-1.030); Urine Urobilinogen Negative (Negative)
[2020-06-23 15:25] LABS: Urine Bacteria Absent (Absent); Urine Red Blood Cell Absent (Absent); Urine Squamous Epithelial Cell Present (Absent); Urine White Blood Cell Absent (Absent)
[2020-06-24] MEDS: Linezolid 600 MG/ 300 ML IVPB SCH ×2 (06:03→17:59)
[2020-06-24 08:47] LABS: ABS Eosinophils 0.1 10^3/ul (0-0.6); ABS Lymphocytes 1.5 10^3/ul (1.0-4.8); ABS Monocytes 1.5 10^3/ul (0-0.8); ABS Neutrophils 8.6 10^3/ul (1.5-7.7); Eosinophil % 1.1 %; Hematocrit 31 % (42-52); Hemoglobin 10.5 g/dL (14.0-18.0); Mean Corpuscular HGB Conc 34 g/dL (31-36); Mean Corpuscular Hemoglobin 31 pg (27-31); Mean Corpuscular Volume 92 fL (80-94); Mean Platelet Volume 7.8 fL (7.4-10.4); Platelet Count 196 10^3/uL (150-450); Red Blood Count 3.41 10^6 /uL (4.18-5.48); Red Cell Distribution Width 15 % (10-15); White Blood Count 11.9 10^3/uL (3.5-10.8)
[2020-06-24 09:11] LABS: Calcium 8.1 mg/dL (8.6-10.3); Potassium 4.3 mmol/L (3.5-5.0)
[2020-06-24 09:17] LABS: BUN/Creatinine Ratio 26.4 (8-20)
[2020-06-24] MEDS ORDERED: fentaNYL 100 mcg/2 ml 50 MCG/ML VIAL ONE (10:42)
[2020-06-24] MEDS ORDERED: Midazolam 5 mg/5 ml VIAL 1 mg/ml 5 ml VIAL (5 mg) ONE (10:42)
[2020-06-24] MEDS ORDERED: Naloxone 0.4 mg VIAL 0.4 mg/ml 1 ml VIAL ONE (10:43)
[2020-06-24] MEDS ORDERED: Flumazenil 0.5 mg/5 ml 0.1 MG/ML 5 ml VIAL ONE (10:43)
[2020-06-24] MEDS: Vitamin THERAPEUTIC TAB PO SCH (12:14)
[2020-06-24] MEDS: Nitroglycerin 0.2 mg/hr PATCH (5 mg) TRANSDERM SCH (12:46)
[2020-06-25] MEDS: Linezolid 600 MG/ 300 ML IVPB SCH ×2 (06:04→18:43)
[2020-06-25] MEDS: Vitamin THERAPEUTIC TAB PO SCH (09:40)
[2020-06-25] MEDS: Nitroglycerin 0.2 mg/hr PATCH (5 mg) TRANSDERM SCH (09:41)
[2020-06-25] MEDS ORDERED: Albuterol 2.5mg/3 ml (0.083%) NEB.SOLN INH PRN (10:11)
[2020-06-25 11:01] LABS: ABS Eosinophils 0.3 10^3/ul (0-0.6); ABS Lymphocytes 1.3 10^3/ul (1.0-4.8); ABS Monocytes 0.9 10^3/ul (0-0.8); ABS Neutrophils 8.1 10^3/ul (1.5-7.7); Hematocrit 32 % (42-52); Hemoglobin 10.7 g/dL (14.0-18.0); Lymphocyte % 12.3 %; Mean Corpuscular HGB Conc 33 g/dL (31-36); Mean Corpuscular Hemoglobin 31 pg (27-31); Mean Corpuscular Volume 92 fL (80-94); Platelet Count 204 10^3/uL (150-450); Red Blood Count 3.48 10^6 /uL (4.18-5.48); Red Cell Distribution Width 15 % (10-15); White Blood Count 10.7 10^3/uL (3.5-10.8)
[2020-06-25 11:19] LABS: Calcium 8.2 mg/dL (8.6-10.3)
[2020-06-25 11:24] LABS: BUN/Creatinine Ratio 26.7 (8-20); EGFR African American 45.6 (>60); EGFR Non-African American 37.7 (>60)
[2020-06-25] MEDS: cefTRIAXone 1 gm/50 mL NS BAG 1 GM/50 ML BAG IVPB SCH (14:32)
[2020-06-25 14:36] LABS: Potassium 4.1 mmol/L (3.5-5.0)
[2020-06-26] MEDS: cefTRIAXone 1 gm/50 mL NS BAG 1 GM/50 ML BAG IVPB SCH ×2 (03:35→13:44)
[2020-06-26] MEDS: Linezolid 600 MG/ 300 ML IVPB SCH ×2 (05:46→17:01)
[2020-06-26 07:15] LABS: ABS Eosinophils 0.3 10^3/ul (0-0.6); ABS Lymphocytes 1.3 10^3/ul (1.0-4.8); ABS Monocytes 0.9 10^3/ul (0-0.8); ABS Neutrophils 5.6 10^3/ul (1.5-7.7); Eosinophil % 3.8 %; Hematocrit 30 % (42-52); Hemoglobin 10.4 g/dL (14.0-18.0); Lymphocyte % 16.3 %; Mean Corpuscular HGB Conc 35 g/dL (31-36); Mean Corpuscular Hemoglobin 32 pg (27-31); Mean Corpuscular Volume 92 fL (80-94); Platelet Count 199 10^3/uL (150-450); Red Blood Count 3.26 10^6 /uL (4.18-5.48); Red Cell Distribution Width 15 % (10-15); White Blood Count 8.2 10^3/uL (3.5-10.8)
[2020-06-26 07:31] LABS: BUN/Creatinine Ratio 30.9 (8-20); Calcium 7.8 mg/dL (8.6-10.3); EGFR African American 52.6 (>60); EGFR Non-African American 43.5 (>60); Potassium 3.9 mmol/L (3.5-5.0)
[2020-06-26] MEDS: Vitamin THERAPEUTIC TAB PO SCH (08:34)
[2020-06-26] MEDS: Nitroglycerin 0.2 mg/hr PATCH (5 mg) TRANSDERM SCH (08:37)
[2020-06-26] MEDS: oxyCODONE/Acetamin 5/325 mg TAB PO PRN (17:00)
[2020-06-27] MEDS: cefTRIAXone 1 gm/50 mL NS BAG 1 GM/50 ML BAG IVPB SCH ×2 (01:46→13:10)
[2020-06-27] MEDS: Linezolid 600 MG/ 300 ML IVPB SCH ×2 (06:19→18:17)
[2020-06-27] MEDS: Nitroglycerin 0.2 mg/hr PATCH (5 mg) TRANSDERM SCH (08:41)
[2020-06-27] MEDS: Vitamin THERAPEUTIC TAB PO SCH (08:43)
[2020-06-27] MEDS: oxyCODONE/Acetamin 5/325 mg TAB PO PRN (20:57)
[2020-06-28] MEDS: cefTRIAXone 1 gm/50 mL NS BAG 1 GM/50 ML BAG IVPB SCH ×2 (01:14→14:12)
[2020-06-28] MEDS: Linezolid 600 MG/ 300 ML IVPB SCH ×2 (05:36→17:46)
[2020-06-28 06:24] LABS: ABS Basophils 0.1 10^3/ul (0-0.2); ABS Eosinophils 0.4 10^3/ul (0-0.6); ABS Lymphocytes 1.6 10^3/ul (1.0-4.8); ABS Neutrophils 5.7 10^3/ul (1.5-7.7); Eosinophil % 4.7 %; Hematocrit 30 % (42-52); Hemoglobin 10.4 g/dL (14.0-18.0); Lymphocyte % 18.1 %; Mean Corpuscular HGB Conc 34 g/dL (31-36); Mean Corpuscular Hemoglobin 32 pg (27-31); Mean Corpuscular Volume 92 fL (80-94); Mean Platelet Volume 7.2 fL (7.4-10.4); Platelet Count 251 10^3/uL (150-450); Red Blood Count 3.31 10^6 /uL (4.18-5.48); Red Cell Distribution Width 15 % (10-15); White Blood Count 8.7 10^3/uL (3.5-10.8)
[2020-06-28 06:40] LABS: BUN/Creatinine Ratio 28.3 (8-20); Calcium 7.9 mg/dL (8.6-10.3); EGFR African American 58.8 (>60); EGFR Non-African American 48.6 (>60); Potassium 4.3 mmol/L (3.5-5.0)
[2020-06-28] MEDS: Vitamin THERAPEUTIC TAB PO SCH (07:55)
[2020-06-28] MEDS: Nitroglycerin 0.2 mg/hr PATCH (5 mg) TRANSDERM SCH (07:55)
[2020-06-28] MEDS: oxyCODONE/Acetamin 5/325 mg TAB PO PRN (20:26)
[2020-06-28] MEDS: Senna TAB 8.6 mg TAB PO PRN (20:26)
[2020-06-29] MEDS: cefTRIAXone 1 gm/50 mL NS BAG 1 GM/50 ML BAG IVPB SCH ×2 (01:23→14:00)
[2020-06-29] MEDS: oxyCODONE/Acetamin 5/325 mg TAB PO PRN (03:03)
[2020-06-29] MEDS: Linezolid 600 MG/ 300 ML IVPB SCH ×2 (05:36→18:22)
[2020-06-29] MEDS: Nitroglycerin 0.2 mg/hr PATCH (5 mg) TRANSDERM SCH (09:20)
[2020-06-29] MEDS: Vitamin THERAPEUTIC TAB PO SCH (09:21)
[2020-06-29] MEDS: Polyethylene Glycol 3350 17 GM PACKET PO PRN (09:21)
[2020-06-29] MEDS: Senna TAB 8.6 mg TAB PO PRN (21:17)
[2020-06-29] MEDS: Nitro Patch/OINT Remove PATCH PATCH OFF SCH (21:31)
[2020-06-30] MEDS: cefTRIAXone 1 gm/50 mL NS BAG 1 GM/50 ML BAG IVPB SCH ×2 (01:53→13:19)
[2020-06-30] MEDS: Linezolid 600 MG/ 300 ML IVPB SCH ×2 (06:12→18:32)
[2020-06-30] MEDS: Polyethylene Glycol 3350 17 GM PACKET PO PRN (09:14)
[2020-06-30] MEDS: Senna TAB 8.6 mg TAB PO PRN (09:15)
[2020-06-30] MEDS: Vitamin THERAPEUTIC TAB PO SCH (09:15)
[2020-06-30] MEDS: Nitroglycerin 0.2 mg/hr PATCH (5 mg) TRANSDERM SCH (09:19)
[2020-06-30] MEDS: oxyCODONE/Acetamin 5/325 mg TAB PO PRN (09:26)
[2020-06-30] MEDS: Nitro Patch/OINT Remove PATCH PATCH OFF SCH (20:35)
[2020-07-01] MEDS: cefTRIAXone 1 gm/50 mL NS BAG 1 GM/50 ML BAG IVPB SCH ×2 (01:28→13:43)
[2020-07-01] MEDS: Linezolid 600 MG/ 300 ML IVPB SCH ×2 (06:00→18:02)
[2020-07-01] MEDS: Nitroglycerin 0.2 mg/hr PATCH (5 mg) TRANSDERM SCH (08:15)
[2020-07-01] MEDS: Vitamin THERAPEUTIC TAB PO SCH (08:17)
[2020-07-01] MEDS: Senna TAB 8.6 mg TAB PO PRN (08:23)
[2020-07-01] MEDS ORDERED: Polyethylene Glycol 3350 17 GM PACKET PO ONE (17:30)
[2020-07-01] MEDS: Nitro Patch/OINT Remove PATCH PATCH OFF SCH (19:07)
[2020-07-02] MEDS: cefTRIAXone 1 gm/50 mL NS BAG 1 GM/50 ML BAG IVPB SCH ×2 (01:00→12:57)
[2020-07-02] MEDS: Linezolid 600 MG/ 300 ML IVPB SCH ×2 (05:25→19:49)
[2020-07-02 06:33] LABS: ABS Eosinophils 0.3 10^3/ul (0-0.6); ABS Lymphocytes 1.2 10^3/ul (1.0-4.8); ABS Monocytes 0.8 10^3/ul (0-0.8); ABS Neutrophils 5.3 10^3/ul (1.5-7.7); Eosinophil % 3.3 %; Hematocrit 29 % (42-52); Lymphocyte % 16.2 %; Mean Corpuscular HGB Conc 34 g/dL (31-36); Mean Corpuscular Hemoglobin 32 pg (27-31); Mean Corpuscular Volume 93 fL (80-94); Mean Platelet Volume 7.3 fL (7.4-10.4); Nucleated Red Blood Cells % 0.1; Platelet Count 294 10^3/uL (150-450); Red Blood Count 3.18 10^6 /uL (4.18-5.48); Red Cell Distribution Width 15 % (10-15); White Blood Count 7.6 10^3/uL (3.5-10.8)
[2020-07-02 06:46] LABS: BUN/Creatinine Ratio 29.6 (8-20); C Reactive Protein 193.93 mg/L (<8.01); Calcium 8.7 mg/dL (8.6-10.3); EGFR Non-African American 41.3 (>60); Potassium 4.6 mmol/L (3.5-5.0)
[2020-07-02] MEDS: Vitamin THERAPEUTIC TAB PO SCH (08:57)
[2020-07-02] MEDS: Nitroglycerin 0.2 mg/hr PATCH (5 mg) TRANSDERM SCH (08:58)
[2020-07-02] MEDS: Nitro Patch/OINT Remove PATCH PATCH OFF SCH (21:16)
[2020-07-03] MEDS: cefTRIAXone 1 gm/50 mL NS BAG 1 GM/50 ML BAG IVPB SCH ×2 (01:25→13:32)
[2020-07-03] MEDS: oxyCODONE/Acetamin 5/325 mg TAB PO PRN (01:26)
[2020-07-03] MEDS: Linezolid 600 MG/ 300 ML IVPB SCH ×2 (05:25→17:46)
[2020-07-03] MEDS: Nitroglycerin 0.2 mg/hr PATCH (5 mg) TRANSDERM SCH (08:47)
[2020-07-03] MEDS: Vitamin THERAPEUTIC TAB PO SCH (08:47)
[2020-07-03] MEDS ORDERED: Furosemide 20 mg/2 ml IV VIAL IV ONE (08:52)
[2020-07-03] MEDS: Nitro Patch/OINT Remove PATCH PATCH OFF SCH (21:36)
[2020-07-04] MEDS: cefTRIAXone 1 gm/50 mL NS BAG 1 GM/50 ML BAG IVPB SCH ×2 (01:25→14:08)
[2020-07-04] MEDS: Linezolid 600 MG/ 300 ML IVPB SCH ×2 (05:36→17:34)
[2020-07-04] MEDS: Nitroglycerin 0.2 mg/hr PATCH (5 mg) TRANSDERM SCH (10:17)
[2020-07-04] MEDS: Vitamin THERAPEUTIC TAB PO SCH (10:17)
[2020-07-04] MEDS: oxyCODONE/Acetamin 5/325 mg TAB PO PRN ×2 (10:23→22:20)
[2020-07-04] MEDS: Nitro Patch/OINT Remove PATCH PATCH OFF SCH (20:36)
[2020-07-05] MEDS: cefTRIAXone 1 gm/50 mL NS BAG 1 GM/50 ML BAG IVPB SCH ×2 (01:59→13:46)
[2020-07-05] MEDS: Linezolid 600 MG/ 300 ML IVPB SCH ×2 (04:52→17:47)
[2020-07-05 05:16] LABS: ABS Basophils 0.1 10^3/ul (0-0.2); ABS Eosinophils 0.3 10^3/ul (0-0.6); ABS Lymphocytes 1.4 10^3/ul (1.0-4.8); ABS Monocytes 0.6 10^3/ul (0-0.8); ABS Neutrophils 2.8 10^3/ul (1.5-7.7); Eosinophil % 6.1 %; Hematocrit 28 % (42-52); Hemoglobin 9.7 g/dL (14.0-18.0); Lymphocyte % 26.8 %; Mean Corpuscular HGB Conc 34 g/dL (31-36); Mean Corpuscular Hemoglobin 31 pg (27-31); Mean Corpuscular Volume 91 fL (80-94); Mean Platelet Volume 7.3 fL (7.4-10.4); Nucleated Red Blood Cells % 0.1; Platelet Count 268 10^3/uL (150-450); Red Blood Count 3.11 10^6 /uL (4.18-5.48); Red Cell Distribution Width 15 % (10-15); White Blood Count 5.3 10^3/uL (3.5-10.8)
[2020-07-05 05:26] LABS: BUN/Creatinine Ratio 34.4 (8-20); Calcium 8.5 mg/dL (8.6-10.3); EGFR African American 67.8 (>60); EGFR Non-African American 56.1 (>60); Potassium 4.3 mmol/L (3.5-5.0)
[2020-07-05] MEDS: Nitroglycerin 0.2 mg/hr PATCH (5 mg) TRANSDERM SCH (09:40)
[2020-07-05] MEDS: Vitamin THERAPEUTIC TAB PO SCH (09:42)
[2020-07-05 16:37] LABS: C Reactive Protein 110.04 mg/L (<8.01)
[2020-07-05] MEDS: Nitro Patch/OINT Remove PATCH PATCH OFF SCH (21:51)
[2020-07-06] MEDS: cefTRIAXone 1 gm/50 mL NS BAG 1 GM/50 ML BAG IVPB SCH ×2 (02:02→12:41)
[2020-07-06] MEDS: Linezolid 600 MG/ 300 ML IVPB SCH (06:17)
[2020-07-06] MEDS: Vitamin THERAPEUTIC TAB PO SCH (09:37)
[2020-07-06] MEDS: Nitroglycerin 0.2 mg/hr PATCH (5 mg) TRANSDERM SCH (09:38)
[2020-07-06 11:57] VITALS: BP 133/67
== END 2020-07-06 15:35 | DRG 314 ==
LOC: ED 11:42 → MEDTELE 11:42
PROVIDERS: ADMIT Physician Assistant; ATTEND Internal Medicine